=== PATIENT | male | born 1945 | race Caucasian/White ===

== ENCOUNTER 2016-06-23 09:13 | Inpatient (IN) | payer MEDICARE, BC ==
[~2016-06-23] VITALS: Ht 175.3 cm; Wt 195.0 kg
[~2016-06-23 09:13] MED LIST: ATOR40TA16 PO; GLIM4TAB PO; GLUC1000 PO; Hydrocodone/Acetaminophen PO; LANTINJ SQ; MAGN400T2 PO; METO50TA11 PO; VICT18IN SQ
[2016-06-23 09:15] VITALS: BP 192/100; PULSE 122; RESP 24; TEMP 97.5; O2SAT 100
[2016-06-23 09:32] VITALS: BP 179/101; PULSE 111; RESP 18; O2SAT 100
--- NOTE | 2016-06-23 09:44 | PD ---
HPI Chief Complaint: Complaint Time Seen by Provider: 09:27 Travel History International Travel<30 days: No Contact w/Intl Traveler<30days: No Traveled to known affect area: No History of Present Illness HPI This is a 70-year-old male who presents to the emergency department with a history of bladder cancer who has had blood in his urine since 4 AM last evening , passing blood clots initially and then feeling pain in his penis and unable to urinate this morning. He feels like he has to urinate but can't. He denies any fevers or chills. He is scheduled to have his bladder removed in early July up at [facility]. His oncologist and his urologist are there. He was hospitalized in [place] in late May having been diagnosed with a DVT and bilateral pulmonary emboli. He was discharged on Lovenox. Because these been having some intermittent blood in his urine they recently decreased his Lovenox from 80 units to 60 units. Patient reports that yesterday he also started to have left lower extremity swelling which had since resolved from his prior hospitalization. He denies any chest pain or trouble breathing. PFSH Past Medical History Hx Anticoagulant Therapy: Yes Cancer: Yes (BLADDER) Cardiovascular Problems: No High Cholesterol: Yes Chemotherapy: Yes (LAST TX 3 WEEKS AGO) Diabetes: Yes Patient Takes Glucophage: Yes (METFORMIN) Endocrine: Yes Genitourinary: No Hepatitis: No Hiatal Hernia: Yes Hypertension: Yes Immune Disorder: No Medical other: Yes (ELEVATED CHOLESTEROL) Musculoskeletal: Yes (ARTHRITIS, RT HIP PAIN) Neurologic: No Psychiatric: No Respiratory: No Thyroid Disease: No Past Surgical History AICD: No Joint Replacement: No Pacemaker: No Other Surgery: Yes (RIGHT CHEST PORT) Social History Alcohol Use: No Tobacco Use: No Substance Use: No Allergies-Medications (Allergen,Severity, Reaction): Coded Allergies: No Known Allergies (Unverified , 06/23/16) Reported Meds & Prescriptions Reported Meds & Active Scripts Active Reported Lovenox Inj (Enoxaparin Sodium) 60 Mg/0.6 Ml Syr 60 Mg SQ DAILY Tolterodine ER (Tolterodine Tartrate) 4 Mg Cap 4 Mg PO DAILY Tamsulosin (Tamsulosin HCl) 0.4 Mg Cap 0.4 Mg PO HS Centrum Silver (Multiple Vitamins W/ Minerals) 1 Tab 1 Tab PO DAILY Magnesium Oxide 400 Mg Tab 400 Mg PO DAILY Metoprolol Succinate ER 24 HR (Metoprolol Succinate) 50 Mg Tab 50 Mg PO DAILY Lantus Solostar Pen Inj (Insulin Glargine) 300 Unit/3 Ml Pen 32 Units SQ BID Atorvastatin (Atorvastatin Calcium) 40 Mg Tab 40 Mg PO HS Glimepiride 4 Mg Tab 4 Mg PO BIDAC Glucophage (Metformin HCl) 1,000 Mg Tab 1,000 Mg PO BIDPC With a meal Victoza Inj (Liraglutide Inj) 18 Mg/3 Ml Pen 1.8 Mg SQ DAILY Review of Systems Except as stated in HPI: all other systems reviewed are Neg Physical Exam Narrative GENERAL:Well appearing, no acute distress SKIN: Focused skin assessment warm and dry. HEAD: Atraumatic. Normocephalic. EYES: Pupils equal and round. No injection or drainage. ENT: Moist mucous membranes NECK: Trachea midline. CARDIOVASCULAR: Tachycardic. No murmur appreciated. RESPIRATORY: Clear to auscultation. Breath sounds equal bilaterally. GASTROINTESTINAL: Abdomen soft, non-tender, nondistended. MUSCULOSKELETAL: Swelling in the left lower extremity with tenderness of the left calf. NEUROLOGICAL: Awake and alert. No obvious cranial nerve deficits. Moving all extremities. PSYCHIATRIC: Appropriate mood and affect; insight and judgment normal. Data Data Last Documented VS Vital Signs Date Time Temp Pulse Resp B/P Pulse Ox O2 Delivery O2 Flow Rate FiO2 06/23/16 11:38 102 18 154/83 95 Room Air 06/23/16 09:15 97.5 Orders Complete Blood Count With Diff (06/23/16 09:36) Comprehensive Metabolic Panel (06/23/16 09:36) Prothrombin Time / Inr (Pt) (06/23/16 09:36) Act Partial Throm Time (Ptt) (06/23/16 09:36) ^ Insert Iv (06/23/16 09:36) Urinary Catheter Insert/Apply (06/23/16 09:36) Urinalysis - C+S If Indicated (06/23/16 09:36) Us Leg Venous Doppler (06/23/16 ) Urine Culture (06/23/16 10:15) Bladder/Catheter Irrigation (06/23/16 11:17) Add Patient To Providers List (06/23/16 ) Admit Order (Ed Use Only) (06/23/16 12:19) Consult Urology (06/23/16 ) Labs Laboratory Tests Test 06/23/16 06/23/16 10:00 10:15 White Blood Count 6.2 TH/MM3 Red Blood Count 3.89 MIL/MM3 Hemoglobin 10.5 GM/DL Hematocrit 32.2 % Mean Corpuscular Volume 82.9 FL Mean Corpuscular Hemoglobin 26.9 PG Mean Corpuscular Hemoglobin 32.5 % Concent Red Cell Distribution Width 20.7 % Platelet Count 320 TH/MM3 Mean Platelet Volume 8.8 FL Neutrophils (%) (Auto) 56.9 % Lymphocytes (%) (Auto) 29.9 % Monocytes (%) (Auto) 11.3 % Eosinophils (%) (Auto) 0.6 % Basophils (%) (Auto) 1.3 % Neutrophils # (Auto) 3.6 TH/MM3 Lymphocytes # (Auto) 1.9 TH/MM3 Monocytes # (Auto) 0.7 TH/MM3 Eosinophils # (Auto) 0.0 TH/MM3 Basophils # (Auto) 0.1 TH/MM3 CBC Comment DIFF FINAL Differential Comment Prothrombin Time 12.1 SEC Prothromb Time International 1.1 RATIO Ratio Activated Partial 26.8 SEC Thromboplast Time Sodium Level 136 MEQ/L Potassium Level 4.2 MEQ/L Chloride Level 103 MEQ/L Carbon Dioxide Level 22.4 MEQ/L Anion Gap 11 MEQ/L Blood Urea Nitrogen 13 MG/DL Creatinine 1.34 MG/DL Estimat Glomerular Filtration 53 ML/MIN Rate Random Glucose 186 MG/DL Calcium Level 8.5 MG/DL Total Bilirubin 0.3 MG/DL Aspartate Amino Transf 28 U/L (AST/SGOT) Alanine Aminotransferase 24 U/L (ALT/SGPT) Alkaline Phosphatase 63 U/L Total Protein 6.7 GM/DL Albumin 3.2 GM/DL Urine Color RED Urine Turbidity CLODUY Urine pH 6.0 Urine Specific [place] 1.010 Urine Protein 100 mg/dL Urine Glucose (UA) NEG mg/dL Urine Ketones NEG mg/dL Urine Occult Blood LARGE Urine Nitrite NEG Urine Bilirubin NEG Urine Urobilinogen LESS THAN 2.0 MG/DL Urine Leukocyte Esterase NEG Urine RBC /hpf Urine WBC 12 /hpf Urine Bacteria OCC /hpf Microscopic Urinalysis Comment CATH-CULTURE IND MDM Medical Decision Making Medical Screen Exam Complete: Yes Emergency Medical Condition: Yes Interpretation(s) afebrile, tachycardic Anemia similar to prior Mild renal insufficiency Urinalysis: Hematuria Differential Diagnosis Bladder cancer, urinary retention, urinary obstruction, anemia, DVT, pulmonary embolism Narrative Course This is a complicated 70-year-old gentleman who has a history of bladder cancer who also is on anticoagulation for recently diagnosed DVT and pulmonary embolism. He presents today with acute urinary retention in the setting of hematuria, as well as increasing left lower extremity swelling which started yesterday. Patient was placed on a monitor and an IV was established. Labs were obtained which were all reassuring. Urinalysis has blood but no obvious infection. I spoke to Dr. Tejada who agreed patient may benefit from continuous bladder irrigation. Given the patient seems to be failing his lower Lovenox dose, I think he should be admitted for consideration of new anticoagulation plan and continued treatment of hematuria. Diagnosis Primary Impression: DVT (deep venous thrombosis) Qualified Code: I82.402 - Acute deep vein thrombosis (DVT) of left lower extremity, unspecified vein Additional Impression: Hematuria Admitting Information Admitting Physician Requests: Admit Lisy Soto MD Jun 23, 2016 09:43
[2016-06-23 10:25] LABS: AUTOMATED NEUTROPHIL # 3.6 TH/MM3 (1.8-7.7); BASOPHIL # 0.1 TH/MM3 (0-0.2); BASOPHIL % 1.3 % (0.0-2.0); EOSINOPHIL % 0.6 % (0.0-4.0); HEMATOCRIT 32.2 % (39.0-51.0); HEMO FLAGS DIFF FINAL; LYMPH % 29.9 % (9.0-44.0); LYMPHOCYTE # 1.9 TH/MM3 (1.0-4.8); MEAN CELL VOLUME 82.9 FL (80.0-100.0); MEAN CORPUSCULAR HEMOGLOBIN 26.9 PG (27.0-34.0); MEAN CORPUSCULAR HGB CONC 32.5 % (32.0-36.0); MONO % 11.3 % (0.0-8.0); NEUT % 56.9 % (16.0-70.0); PLATELET COUNT 320 TH/MM3 (150-450); RED BLOOD COUNT 3.89 MIL/MM3 (4.50-5.90); RED CELL DISTRIBUTION WIDTH 20.7 % (11.6-17.2); WHITE BLOOD COUNT 6.2 TH/MM3 (4.0-11.0)
[2016-06-23 10:36] LABS: APTT (PATIENT) 26.8 SEC (24.3-30.1); INTERNATIONAL NORMALIZED RATIO 1.1 RATIO; PROTHROMBIN TIME - PATIENT 12.1 SEC (9.8-11.6)
[2016-06-23 10:38] LABS: ALT (GPT) 24 U/L (12-78); ANION GAP 11 MEQ/L (5-15); AST (GOT) 28 U/L (15-37); BICARBONATE 22.4 MEQ/L (21.0-32.0); BLOOD UREA NITROGEN 13 MG/DL (7-18); CHLORIDE 103 MEQ/L (98-107); GLOMERULAR FILTRATION RATE 53 ML/MIN (>89); POTASSIUM 4.2 MEQ/L (3.5-5.1); SODIUM (NA) 136 MEQ/L (136-145)
[2016-06-23 10:42] LABS: BACTERIA, URINE OCC /hpf; BLOOD, URINE LARGE (NEG); GLUCOSE,URINE NEG (NEG); KETONE, URINE NEG (NEG); NITRITE,URINE NEG (NEG); URINE COLOR RED (YELLW/STRAW)
[2016-06-23 10:43] LABS: COMMENT (UR) CATH-CULTURE IND; CULTURE IF INDICATED CATH CULTURE IND
[2016-06-23 10:44] LABS: ALKALINE PHOSPHATASE 63 U/L (45-117); TOTAL BILIRUBIN ADULT 0.3 MG/DL (0.2-1.0)
[2016-06-23 11:38] VITALS: BP 154/83; PULSE 102; RESP 18; O2SAT 95
--- NOTE | 2016-06-23 11:46 | RADRPT ---
EXAM DATE/TIME: 06/23/2016 10:42 [place] COMPARISON: No previous studies available for comparison. INDICATIONS : Left leg swelling two weeks ago when patient was diagnosed with a pulmonary embolism. Swelling went down but has now returned. MEDICAL HISTORY : Hypercholesterolemia. Hypertension. Carcinoma, bladder. Anticoagulant therapy. Arthritis. Diabetes . Hiatal hernia. SURGICAL HISTORY : Total right hip replacement. Right chest port. Chemotherapy. ENCOUNTER: Initial ACUITY: 2 weeks PAIN SCORE: 2/10 LOCATION: Left leg. TECHNIQUE: Venous ultrasound of the leg was performed from the inguinal ligament to the proximal calf. Real-[place] e, color Doppler and spectral tracing, compression and augmentation techniques were used. FINDINGS: There is occlusive thrombus extending from common femoral vein all the way down to popliteal vein. B elow the knee vessels are patent. CONCLUSION: DVT. KCase Palmer MD on June 23, 2016 at 11:43 Board Certified Radiologist. This report was verified electronically.
[2016-06-23] MEDS ORDERED: CENTTAB PO (11:48)
[2016-06-23] MEDS ORDERED: TAMS0.4C4 PO (11:48)
[2016-06-23] MEDS ORDERED: TOLT1CAP PO (11:48)
[2016-06-23] MEDS ORDERED: ENOX60P SQ (11:48)
[2016-06-23] MEDS ORDERED: NALOXONE HCL 0.4 MG/ML AMP IV PRN (12:45)
[2016-06-23] MEDS ORDERED: SODIUM CHLORIDE 0.9% FLUSH 10 ML FLUSH IV FLUSH PRN (12:45)
[2016-06-23] MEDS ORDERED: ONDANSETRON HCL 4 MG/2 ML VIAL IVP PRN (12:45)
--- NOTE | 2016-06-23 12:45 | HHI.HP ---
[facility] Service [facility] Primary Care Physician Minerva Macdonald MD Admission Diagnosis dvt, hematuria Diagnoses: Chief Complaint: Microhematuria Travel History International Travel<30 Days: No Contact w/Intl Traveler <30 Da: No Traveled to Known Affected Are: No Past Family Social History Allergies: Coded Allergies: No Known Allergies (Unverified , 06/23/16) Physical Exam Vital Signs Vital Signs Date Time Temp Pulse Resp B/P Pulse Ox O2 Delivery O2 Flow Rate FiO2 06/23/16 11:38 102 18 154/83 95 Room Air 06/23/16 09:32 111 18 179/101 100 Room Air 06/23/16 09:32 111 18 06/23/16 09:15 97.5 122 24 192/100 100 Room Air Physical Exam GENERAL: This is a well-nourished, well-developed patient, in no apparent distress. SKIN: No rashes, ecchymoses or lesions. Cool and dry. HEAD: Atraumatic. Normocephalic. No temporal or scalp tenderness. EYES: Pupils equal round and reactive. Extraocular motions intact. No scleral icterus. No injection or drainage. ENT: Nose without bleeding, purulent drainage or septal hematoma. Throat without erythema, tonsillar hypertrophy or exudate. Uvula midline. Airway patent. NECK: Trachea midline. No JVD or lymphadenopathy. Supple, nontender, no meningeal signs. CARDIOVASCULAR: Regular rate and rhythm without murmurs, gallops, or rubs. RESPIRATORY: Clear to auscultation. Breath sounds equal bilaterally. No wheezes , rales, or rhonchi. GASTROINTESTINAL: Abdomen soft, non-tender, nondistended. No hepato-splenomegaly , or palpable masses. No guarding. MUSCULOSKELETAL: Extremities without clubbing, cyanosis, or edema. No joint tenderness, effusion, or edema noted. No calf tenderness. Negative Homans sign bilaterally. NEUROLOGICAL: Awake and alert. Cranial nerves II through XII intact. Motor and sensory grossly within normal limits. Five out of 5 muscle strength in all muscle groups. Normal speech. Laboratory Laboratory Tests Test 06/23/16 06/23/16 10:00 10:15 White Blood Count 6.2 Red Blood Count 3.89 Hemoglobin 10.5 Hematocrit 32.2 Mean Corpuscular Volume 82.9 Mean Corpuscular Hemoglobin 26.9 Mean Corpuscular Hemoglobin 32.5 Concent Red Cell Distribution Width 20.7 Platelet Count 320 Mean Platelet Volume 8.8 Neutrophils (%) (Auto) 56.9 Lymphocytes (%) (Auto) 29.9 Monocytes (%) (Auto) 11.3 Eosinophils (%) (Auto) 0.6 Basophils (%) (Auto) 1.3 Neutrophils # (Auto) 3.6 Lymphocytes # (Auto) 1.9 Monocytes # (Auto) 0.7 Eosinophils # (Auto) 0.0 Basophils # (Auto) 0.1 CBC Comment DIFF FINAL Differential Comment Prothrombin Time 12.1 Prothromb Time International 1.1 Ratio Activated Partial 26.8 Thromboplast Time Sodium Level 136 Potassium Level 4.2 Chloride Level 103 Carbon Dioxide Level 22.4 Anion Gap 11 Blood Urea Nitrogen 13 Creatinine 1.34 Estimat Glomerular Filtration 53 Rate Random Glucose 186 Calcium Level 8.5 Total Bilirubin 0.3 Aspartate Amino Transf 28 (AST/SGOT) Alanine Aminotransferase 24 (ALT/SGPT) Alkaline Phosphatase 63 Total Protein 6.7 Albumin 3.2 Urine Color RED Urine Turbidity CLODUY Urine pH 6.0 Urine Specific [place] 1.010 Urine Protein 100 Urine Glucose (UA) NEG Urine Ketones NEG Urine Occult Blood LARGE Urine Nitrite NEG Urine Bilirubin NEG Urine Urobilinogen LESS THAN 2.0 Urine Leukocyte Esterase NEG Urine RBC Urine WBC 12 Urine Bacteria OCC Microscopic Urinalysis Comment CATH-CULTURE IND Date/Time Procedure Status Source Growth 06/23/16 10:15 Urine Culture Received Urine Catheterized Urine Pending Result Diagram: 06/23/16 1000 06/23/16 1000 Physician Certification Order for Inpatient Services The services are ordered in accordance with Medicare regulations or non- Medicare payer requirements, as applicable. In the case of services not specified as inpatient-only, they are appropriately provided as inpatient services in accordance with the 2-midnight benchmark. days is the estimated time the patient will need to remain in the hospital, assuming treatment plan goals are met and no additional complications. Rama Mai MD Jun 23, 2016 12:45
[2016-06-23 12:57] VITALS: BP 156/81; PULSE 105; RESP 18; O2SAT 100
--- NOTE | 2016-06-23 12:58 | HHI.HP ---
[facility] Service [place] [facility] Primary Care Physician Minerva Macdonald MD Admission Diagnosis dvt, hematuria Diagnoses: Chief Complaint: hematuria Travel History International Travel<30 Days: No Contact w/Intl Traveler <30 Da: No Traveled to Known Affected Are: No History of Present Illness 70-year-old male past medical history of sent diagnosis of bladder cancer and saddle PE/left DVT who presented with hematuria. Patient stated that he is receiving chemotherapy at [facility] and that he is due for surgery. He stated that on 05/29/16 he was diagnosed with saddle pulmonary embolism and left DVT in which he was treated on Lovenox 80 mg by mouth twice a day but had some hematuria so his oncologist told him to decrease the doses to 60 mg twice a day. Patient stated that he was doing well on this dose but then yesterday he started to urinate clots then he stopped urinating this morning. They also yesterday he started getting more swelling in his left leg. He stated that prior from this after he was treated with Lovenox the swelling resolved. Patient denies any shortness of breathing. Patient stated that he just got back to [facility] last week. Review of Systems Constitutional: DENIES: Diaphoretic episodes, Fatigue, Fever, Weight gain, Weight loss, Chills, Dizziness, Change in appetite, Night Sweats Endocrine: DENIES: Heat/cold intolerance, Polydipsia, Polyuria, Polyphagia Eyes: DENIES: Blurred vision, Diplopia, Eye inflammation, Eye pain, Vision loss , Photosensitivity, Double Vision Ears, nose, mouth, throat: DENIES: Tinnitus, Hearing loss, Vertigo, Nasal discharge, Oral lesions, Throat pain, Hoarseness, Ear Pain, Running Nose, Epistaxis, Sinus Pain, Toothache, Odynophagia Respiratory: DENIES: Apneas, Cough, Snoring, Wheezing, Hemoptysis, Sputum production, Shortness of breath Cardiovascular: COMPLAINS OF: Lower Extremity Edema, DENIES: Chest pain, Palpitations, Syncope, Dyspnea on Exertion, PND, Orthopnea, Claudication Gastrointestinal: DENIES: Abdominal pain, Black stools, Bloody stools, Constipation, Diarrhea, Nausea, Vomiting, Difficulty Swallowing, Anorexia Genitourinary: DENIES: Sexual dysfunction, Urinary frequency, Urinary incontinence, Urgency, Hematuria, Dysuria, Nocturia, Penile Discharge, Testicular Pain, Testicular Swelling Musculoskeletal: DENIES: Joint pain, Muscle aches, Stiffness, Joint Swelling, Back pain, Neck pain Integumentary: DENIES: Abnormal pigmentation, Nail changes, Pruritus, Rash Hematologic/lymphatic: DENIES: Bruising, Lymphadenopathy Immunologic/allergic: DENIES: Eczema, Urticaria Neurologic: DENIES: Abnormal gait, Headache, Localized weakness, Paresthesias, Seizures, Speech Problems, Tremor, Poor Balance Psychiatric: DENIES: Anxiety, Confusion, Mood changes, Depression, Hallucinations, Agitation, Suicidal Ideation, Homicidal Ideation, Delusions Hematuria Past Family Social History Past Medical History Bladder cancer Type 2 diabetes insulin-dependent Recent diagnosis of left DVT Saddle pulmonary embolism BPH Hyperlipidemia Hypertension Past Surgical History Port placement Right hip replacement Reported Medications Reported Meds & Active Scripts Active Reported Lovenox Inj (Enoxaparin Sodium) 60 Mg/0.6 Ml Syr 60 Mg SQ DAILY Tolterodine ER (Tolterodine Tartrate) 4 Mg Cap 4 Mg PO DAILY Tamsulosin (Tamsulosin HCl) 0.4 Mg Cap 0.4 Mg PO HS Centrum Silver (Multiple Vitamins W/ Minerals) 1 Tab 1 Tab PO DAILY Magnesium Oxide 400 Mg Tab 400 Mg PO DAILY Metoprolol Succinate ER 24 HR (Metoprolol Succinate) 50 Mg Tab 50 Mg PO DAILY Lantus Solostar Pen Inj (Insulin Glargine) 300 Unit/3 Ml Pen 32 Units SQ BID Atorvastatin (Atorvastatin Calcium) 40 Mg Tab 40 Mg PO HS Glimepiride 4 Mg Tab 4 Mg PO BIDAC Glucophage (Metformin HCl) 1,000 Mg Tab 1,000 Mg PO BIDPC With a meal Victoza Inj (Liraglutide Inj) 18 Mg/3 Ml Pen 1.8 Mg SQ DAILY Allergies: Coded Allergies: No Known Allergies (Unverified , 06/23/16) Active Ordered Medications Current Medications Atorvastatin Calcium (Lipitor) 40 mg HS PO ; Start 06/23/16 at 21:00; Status UNV Enoxaparin Sodium (Lovenox Inj) 60 mg DAILY SQ ; Start 06/24/16 at 09:00; Stop 06/24/16 at 09:00; Status DC Glimepiride (Amaryl) 4 mg BIDAC PO ; Start 06/23/16 at 16:00; Status UNV Magnesium Oxide (Mag-Ox) 400 mg DAILY PO ; Start 06/24/16 at 09:00; Status UNV Metformin HCl (Glucophage) 1,000 mg BIDPC PO ; Start 06/23/16 at 18:00; Status UNV Metoprolol Succinate (Toprol Xl) 50 mg DAILY PO ; Start 06/24/16 at 09:00; Status UNV Tamsulosin HCl (Flomax) 0.4 mg HS PO ; Start 06/23/16 at 21:00; Status UNV Tolterodine Tartrate (Detrol La) 4 mg DAILY PO ; Start 06/24/16 at 09:00; Status UNV Non-Formulary Medication 32 units BID SQ BSM; Start 06/23/16 at 21:00; Status UNV Non-Formulary Medication 1.8 mg DAILY SQ ; Start 06/24/16 at 09:00; Status UNV Non-Formulary Medication 1 tab DAILY PO NS; Start 06/24/16 at 09:00; Status UNV Enoxaparin Sodium (Lovenox Inj) 60 mg BID SQ ; Start 06/24/16 at 20:00; Status UNV Family History Mother had pancreatic cancer. Father had squamous cell carcinoma. Sister has breast cancer. Social History Patient lives in [facility] and [place]. Stop smoking in 1976. 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 Very rarely drinks alcohol. Physical Exam Vital Signs Vital Signs Date Time Temp Pulse Resp B/P Pulse Ox O2 Delivery O2 Flow Rate FiO2 06/23/16 11:38 102 18 154/83 95 Room Air 06/23/16 09:32 111 18 179/101 100 Room Air 06/23/16 09:32 111 18 06/23/16 09:15 97.5 122 24 192/100 100 Room Air Physical Exam GENERAL: This is a well-nourished, well-developed patient, in no apparent distress. SKIN: No rashes, ecchymoses or lesions. Cool and dry. HEAD: Atraumatic. Normocephalic. No temporal or scalp tenderness. EYES: Pupils equal round and reactive. Extraocular motions intact. No scleral icterus. No injection or drainage. ENT: Nose without bleeding, purulent drainage or septal hematoma. Throat without erythema, tonsillar hypertrophy or exudate. Uvula midline. Airway patent. NECK: Trachea midline. No JVD or lymphadenopathy. Supple, nontender, no meningeal signs. CARDIOVASCULAR: Regular rate and rhythm without murmurs, gallops, or rubs. RESPIRATORY: Clear to auscultation. Breath sounds equal bilaterally. No wheezes , rales, or rhonchi. GASTROINTESTINAL: Abdomen soft, non-tender, nondistended. No hepato-splenomegaly , or palpable masses. No guarding. MUSCULOSKELETAL: Extremities without clubbing, cyanosis, or edema. No joint tenderness, effusion, or edema noted. No calf tenderness. Negative Homans sign bilaterally. NEUROLOGICAL: Awake and alert. Cranial nerves II through XII intact. Motor and sensory grossly within normal limits. Five out of 5 muscle strength in all muscle groups. Normal speech. Laboratory Laboratory Tests Test 06/23/16 06/23/16 10:00 10:15 White Blood Count 6.2 Red Blood Count 3.89 Hemoglobin 10.5 Hematocrit 32.2 Mean Corpuscular Volume 82.9 Mean Corpuscular Hemoglobin 26.9 Mean Corpuscular Hemoglobin 32.5 Concent Red Cell Distribution Width 20.7 Platelet Count 320 Mean Platelet Volume 8.8 Neutrophils (%) (Auto) 56.9 Lymphocytes (%) (Auto) 29.9 Monocytes (%) (Auto) 11.3 Eosinophils (%) (Auto) 0.6 Basophils (%) (Auto) 1.3 Neutrophils # (Auto) 3.6 Lymphocytes # (Auto) 1.9 Monocytes # (Auto) 0.7 Eosinophils # (Auto) 0.0 Basophils # (Auto) 0.1 CBC Comment DIFF FINAL Differential Comment Prothrombin Time 12.1 Prothromb Time International 1.1 Ratio Activated Partial 26.8 Thromboplast Time Sodium Level 136 Potassium Level 4.2 Chloride Level 103 Carbon Dioxide Level 22.4 Anion Gap 11 Blood Urea Nitrogen 13 Creatinine 1.34 Estimat Glomerular Filtration 53 Rate Random Glucose 186 Calcium Level 8.5 Total Bilirubin 0.3 Aspartate Amino Transf 28 (AST/SGOT) Alanine Aminotransferase 24 (ALT/SGPT) Alkaline Phosphatase 63 Total Protein 6.7 Albumin 3.2 Urine Color RED Urine Turbidity CLODUY Urine pH 6.0 Urine Specific [place] 1.010 Urine Protein 100 Urine Glucose (UA) NEG Urine Ketones NEG Urine Occult Blood LARGE Urine Nitrite NEG Urine Bilirubin NEG Urine Urobilinogen LESS THAN 2.0 Urine Leukocyte Esterase NEG Urine RBC Urine WBC 12 Urine Bacteria OCC Microscopic Urinalysis Comment CATH-CULTURE IND Date/Time Procedure Status Source Growth 06/23/16 10:15 Urine Culture Received Urine Catheterized Urine Pending Result Diagram: 06/23/16 1000 06/23/16 1000 Imaging Last Impressions Lower Extremity Ultrasound 06/23/16 0000 Signed Impressions: Service Date/Time: Thursday, June 23, 2016 10:42 - CONCLUSION: DVT. K. Otto Palmer MD Assessment and Plan Assessment and Plan 70-year-old male with bladder cancer status post chemotherapy and history of recent PE/DVT who presented with hematuria Hematuria -Patient currently being treated for bladder cancer with chemotherapy and is on Lovenox for PE/DVT. He had dosage reduce at the end of May from 80 mg of Lovenox to 60 mg twice a day. -[facility] place and there was clots noted. Dr. Tejada, Urologist was consulted -We'll continue with Lovenox and consult carpet inspector finished for further recommendation. Bladder cancer status post chemotherapy -Per patient he scheduled for surgery. -Can follow-up with his surgeon and oncologist as outpatient. DVT/PE -This was a recent diagnosis and the swelling on his left leg has worsened. Ultrasound confirmed DVT. -Continue with Lovenox pending recommendations from the carpet inspector finished. Type 2 diabetes insulin-dependent -Resume home medication. Start patient on insulin sliding scale. BPH/hypertension/hyperlipidemia -Resume home medication. DVT prophylaxis -On Lovenox. Code Status full Discussed Condition With patient Physician Certification 2 Midnight Certification Type: Admission for Inpatient Services Order for Inpatient Services The services are ordered in accordance with Medicare regulations or non- Medicare payer requirements, as applicable. In the case of services not specified as inpatient-only, they are appropriately provided as inpatient services in accordance with the 2-midnight benchmark. Estimated LOS (days): 3 3 days is the estimated time the patient will need to remain in the hospital, assuming treatment plan goals are met and no additional complications. Post-Hospital Plan: Home Rama Mai MD Jun 23, 2016 12:58
[2016-06-23] MEDS ORDERED: DEXTROSE 50% IN WATER 50 ML VIAL(D50) IV PUSH PRN (13:00)
[2016-06-23] MEDS ORDERED: GLUCAGON 1 MG/ML VIAL OTHER PRN (13:00)
[2016-06-23] MEDS: SODIUM CHLOR 0.45% 1000 ML INJ 1,000 ML IV SCH (14:32)
--- NOTE | 2016-06-23 14:59 | MB ---
cc: LILIANA RAMIREZ DATE OF CONSULTATION: 06/23/2016 HISTORY OF PRESENT ILLNESS A 70-year-old male with history of muscle invasive bladder cancer, presents with gross hematuria. He has had this on and off over time. He was recently diagnosed with a left DVT of the lower extremity and was started on Lovenox. His initial dose was 80 mg twice a day but that was then decreased to 60 mg twice a day due to ongoing hematuria. He now presents with clot retention and a 20-Malian three-way Lanier catheter has been inserted and he is on CBI. He was irrigated at the bedside by myself and numerous clots were then irrigated out and then the urine began to slowly clear. He has received both gemcitabine and cisplatinum for his chemotherapy regimen and is scheduled to undergo surgery at [facility] on July 14. He has no other complaints at this time. PAST MEDICAL HISTORY 1. Muscle invasive bladder cancer. 2. Diabetes. 3. Left DVT. 4. History of pulmonary embolism. 5. BPH. 6. Hyperlipidemia. 7. Hypertension. PAST SURGICAL HISTORY Notable for port placement and a right hip replacement. MEDICATION For medications please refer to the chart. ALLERGIES He has no allergies. FAMILY HISTORY Family history is notable for pancreatic cancer and sister with breast cancer. SOCIAL HISTORY He currently lives in [facility] and [place]. He quit smoking in 1976. 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 REVIEW OF SYSTEMS He denies any fever or chills, weight gain or weight loss at present. He denies any heat or cold intolerance, polydipsia. Denies any blurred vision, diplopia, inflammation of the eye, vision loss. He denies any tinnitus or hearing loss, vertigo. Denies any chest pain or denies any shortness of breath at present, sputum production, no angina. Denies abdominal pain, black tarry stools, constipation or diarrhea. Does note gross hematuria but denies any discharge. Musculoskeletal: Denies any muscle aches or joint pain. He denies any rashes at present time. He denies any bleeding disorders or gait disturbances. Denies any headaches, localized weakness. Denies any eczema or urticaria. Denies any anxiety, confusion or mood changes. PHYSICAL EXAMINATION VITAL SIGNS: Temperature is 97.5, heart rate is 105, respiratory rate 18, 156/81. GENERAL: He is a well-developed, well-nourished 70-year-old male in no acute distress. HEENT: Normocephalic, atraumatic. Pupils are equal, round and reactive to light. Extraocular movements intact. NECK: Supple. HEART: Regular rate and rhythm. LUNGS: Breath sounds bilaterally. ABDOMEN: Soft, nontender, nondistended. : A 20-Malian Lanier is in place, irrigated at the bedside to clear with clots removed without difficulty. EXTREMITIES: Show left lower extremity edema, swelling. LABORATORY FINDINGS White count 6.2, hemoglobin 10.5, hematocrit 32.5, platelet count 320, sodium 136, potassium 4.2, chloride 103, CO2 22.4, BUN of 13, creatinine 1.3, glucose of 186, PT is 12.1, INR is 1.1, PTT is 26.8. Urinalysis shows numerous red cells with 12 white cells. IMAGING STUDIES Lower extremity ultrasound shows DVT of the left leg. Ultrasound shows occlusive thrombus extending from the common femoral vein all the way down to the popliteal vein. ASSESSMENT A 70-year-old male with history of muscle invasive bladder cancer with a history of a DVT on anticoagulation therapy. 20-Malian three-way Lanier catheter was inserted at the bedside and irrigated to clear. Continue CBI for now. Once urine clears can remove Lanier and then plan for discharge and then will return to [place] to undergo a radical cystoprostatectomy at that time at [facility]. Thank you for the consult and allowing me to participate in the care of this patient. Liliana NOE /2:26 PM /2:36 PM
[2016-06-23 15:45] VITALS: BP 142/76; PULSE 104; RESP 18; O2SAT 100
[2016-06-23] MEDS: INSULIN ASPART SUPPLEMENTAL SCALE SQ SCH ×2 (16:23→22:48)
[2016-06-23] MEDS: GLIMEPIRIDE 4 MG TAB PO SCH (17:27)
[2016-06-23] MEDS: metFORMIN HCL 500 MG TAB PO SCH (17:30)
[2016-06-23] MEDS ORDERED: ENOXAPARIN SODIUM 60 MG/0.6 ML SYRINGE SQ SCH (20:00)
[2016-06-23 21:00] VITALS: BP 149/70; PULSE 97; RESP 21; TEMP 98.9; O2SAT 94
[2016-06-23] MEDS ORDERED: HEPARIN SODIUM - IV 10,000 UNITS/10 ML VIAL IV PRN ×2 (21:00)
[2016-06-23] MEDS: SODIUM CHLORIDE 0.9% FLUSH 10 ML FLUSH IV FLUSH SCH (21:00)
[2016-06-23] MEDS: HEPARIN 25,000 UNITS-D5W 250 ML - PREMIX IV SCH (22:32)
[2016-06-23] MEDS: TAMSULOSIN HCL 0.4 MG CAP PO SCH (22:46)
[2016-06-23] MEDS: ATORVASTATIN 40 MG TAB PO SCH (22:46)
[2016-06-23] MEDS: INSULIN DETEMIR 100 UNITS/ML VIAL SQ SCH (22:48)
[2016-06-24] VITALS: BP 143/68; PULSE 101; RESP 16; TEMP 97.9; O2SAT 98
[2016-06-24 06:28] LABS: HEMATOCRIT 30.5 % (39.0-51.0); MEAN CORPUSCULAR HEMOGLOBIN 26.7 PG (27.0-34.0); MEAN CORPUSCULAR HGB CONC 32.1 % (32.0-36.0); PLATELET COUNT 301 TH/MM3 (150-450); RED BLOOD COUNT 3.68 MIL/MM3 (4.50-5.90); RED CELL DISTRIBUTION WIDTH 20.7 % (11.6-17.2); REVIEW FLAG FINAL; WHITE BLOOD COUNT 7.2 TH/MM3 (4.0-11.0)
[2016-06-24 06:37] LABS: APTT (PATIENT) 41.3 SEC (24.3-30.1)
[2016-06-24 06:47] LABS: BICARBONATE 27.3 MEQ/L (21.0-32.0); POTASSIUM 3.7 MEQ/L (3.5-5.1)
[2016-06-24] MEDS: GLIMEPIRIDE 4 MG TAB PO SCH ×2 (06:47→18:03)
[2016-06-24] MEDS: SODIUM CHLOR 0.45% 1000 ML INJ 1,000 ML IV SCH ×2 (06:48→16:40)
[2016-06-24] MEDS: INSULIN ASPART SUPPLEMENTAL SCALE SQ SCH ×4 (06:49→20:37)
[2016-06-24 08:00] VITALS: BP 157/78; PULSE 99; RESP 18; TEMP 97.9; O2SAT 96
[2016-06-24] MEDS: SODIUM CHLORIDE 0.9% FLUSH 10 ML FLUSH IV FLUSH SCH ×2 (08:39→20:37)
[2016-06-24] MEDS: TOLTERODINE TARTRATE 4 MG CAP LA PO SCH (08:39)
[2016-06-24] MEDS: METOPROLOL SUCCINATE 50 MG EXTENDED RELEASE TAB PO SCH (08:39)
[2016-06-24] MEDS: INSULIN DETEMIR 100 UNITS/ML VIAL SQ SCH ×2 (08:40→20:36)
[2016-06-24] MEDS: MULTIVITAMINS/MINERALS THERAPEUTIC TAB PO SCH (08:40)
[2016-06-24] MEDS: metFORMIN HCL 500 MG TAB PO SCH ×2 (08:40→18:03)
[2016-06-24] MEDS: VICTOZA 1.8 MG SQ SCH (08:41)
[2016-06-24] MEDS: [UNRECOGNIZED DRUG - OTHER] SQ SCH (08:41)
[2016-06-24] MEDS ORDERED: ENOXAPARIN SODIUM 60 MG/0.6 ML SYRINGE SQ SCH (09:00)
--- NOTE | 2016-06-24 09:16 | HHI.PR ---
Subjective Patient symptoms today Pt seen and examined. Feels well. Urine now clear. Hurley removed at bedside. Objective Vital Signs Vital Signs Date Time Temp Pulse Resp B/P Pulse Ox O2 Delivery O2 Flow Rate FiO2 06/24/16 00:00 97.9 101 16 143/68 98 06/23/16 21:00 98.9 97 21 149/70 94 06/23/16 15:45 104 18 142/76 100 Room Air 06/23/16 12:57 105 18 156/81 100 Room Air 06/23/16 11:38 102 18 154/83 95 Room Air 06/23/16 09:32 111 18 179/101 100 Room Air 06/23/16 09:32 111 18 Result Diagram: 06/24/16 0555 06/24/16 05 Objective Remarks Abd:soft,nt,nd Hurley: urine clear and hurley removed; void trial today. Medications and IVs Current Medications Medications (Trade) Dose Ordered Sig/Liane Route Start Time Stop Time Status Last Admin (Lipitor) 40 mg HS PO 06/23/16 21:00 06/23/16 22:46 (Amaryl) 4 mg BIDAC PO 06/23/16 16:00 06/24/16 06:47 (Mag-Ox) 400 mg DAILY@11 PO 06/24/16 11:00 (Glucophage) 1,000 mg BIDPC PO 06/23/16 18:00 06/24/16 08:40 (Toprol Xl) 50 mg DAILY PO 06/24/16 09:00 06/24/16 08:39 (Flomax) 0.4 mg HS PO 06/23/16 21:00 06/23/16 22:46 (Detrol La) 4 mg DAILY PO 06/24/16 09:00 06/24/16 08:39 (Levemir Inj) 32 units BID SQ 06/23/16 21:00 06/23/16 22:48 Patient Own Medication PT OWN MED: VICTOZA (LIRAGLUTI... DAILY SQ 06/24/16 09:00 Multivitamins/ Minerals Therapeutic 1 tab 1 tab DAILY PO 06/24/16 09:00 06/24/16 08:40 (1/2 NS 1000 ml Inj) 1,000 ml @ 75 mls/hr [id number] IV 06/23/16 14:00 06/24/16 06:48 (NS Flush) 2 ml UNSCH PRN IV FLUSH 06/23/16 12:45 (NS Flush) 2 ml BID IV FLUSH 06/23/16 21:00 06/24/16 08:39 (Zofran Inj) 4 mg Q6H PRN IVP 06/23/16 12:45 (Narcan Inj) 0.4 mg UNSCH PRN IV 06/23/16 12:45 (D50w (Vial) Inj) 25 ml UNSCH PRN IV PUSH 06/23/16 13:00 Glucagon 1 mg 1 mg UNSCH PRN OTHER 06/23/16 13:00 (Heparin-D5W Inj) 250 ml @ 0 mls/hr TITRATE IV 06/23/16 21:00 06/23/16 22:32 (Heparin Inj) 5,000 units UNSCH PRN IV 06/23/16 21:00 (Heparin Inj) 2,500 units UNSCH PRN IV 06/23/16 21:00 Assessment and Plan Assessment and Plan 70 y.o male with muscle invasive bladder cancer with gross hematuria Urine now clear Hurley removed; void trial today Alejo Tejada DO Jun 24, 2016 09:16
--- NOTE | 2016-06-24 09:19 | MB ---
cc: MINERVA MACDONALD MD, ABDUL J. M.D. DATE OF CONSULTATION 06/23/[address] Minerva Macdonald REASON FOR CONSULTATION Consult [facility] of left lower extremity DVT in a patient who has a history of urinary bladder cancer. HISTORY OF PRESENT ILLNESS This is a 70-year-old very pleasant white male. He has a history of diabetes mellitus, hypertension, hypercholesterolemia and BPH. The patient went for a routine examination to Dr. Minerva Macdonald last January. Routine blood tests and urine tests were ordered. The patient was found to have hematuria. The patient was subsequently referred to urologist, Dr. Best. The patient states that he underwent cystoscopy and was found to have a urinary bladder cancer. The details of the those are not available at the present time. The patient states that he has four daughters all who live up [place] and they advised him to come to [place] to get a second opinion. The patient went to [facility] in [place], as well as [facility] in [place] to get second and third opinions. He states that both second and third opinion advised him to have preoperative chemotherapy followed by cystoprostatectomy. The patient decided to be treated at [facility]. He saw Dr. Goldy Vaughan, a urologist. His office number is [phone]. He also saw medical oncologist Dr. Sherman. Her office number is [phone]. The patient was started on cisplatin and Gemzar chemotherapy. He states that he was taking chemotherapy two weeks on and one week off. He had a total of seven chemotherapies. He had a restaging scan done and the tumor in the bladder has gone down from 1.7 cm to 0.4 cm. This is according to the patient's history, although I do not have any of those records available. The patient stated that he has been advised not to have any further chemotherapy and he is now scheduled to have a radical cystoprostatectomy on July 14 at [facility]. On May 29, he was diagnosed with left lower extremity DVT with bilateral pulmonary embolism when he presented with swelling of the left lower extremity in [place]. The patient stated that he was admitted to the hospital. He was treated with IV heparin and he was discharged on Lovenox 80 mg subcu twice a day. The patient noticed that the swelling in his leg has completely resolved with the Lovenox. The patient was doing fine up until recently, he developed hematuria and he was advised to cut back on Lovenox from 80 mg to 60 mg twice a day. However, he continues to notice hematuria. He came to the emergency room today. When he woke up in the morning, he was unable to urinate. He was in severe pain. He also noticed swelling of the left lower extremity. With these symptoms, he came to the emergency room. The patient had a Doppler ultrasound of the left lower leg which showed acute occlusive thrombus extending from the common femoral vein all the way down to the popliteal vein. Below the knee vessels are patent. The patient also was found to have urinary retention due to blood clots in the bladder. He has a three-way Lanier catheter inserted and multiple clots were retrieved. The patient was started on CBI. The urologist was consulted. The patient was evaluated by Dr. Chuck Tejada. With the CBI, his urine has now cleared. I have been asked to see the patient for left lower extremity DVT. The patient states that last month he developed left lower extremity swelling and he was found to have DVT with pulmonary embolism. With the Heparin and Lovenox, the swelling in his left leg has completely resolved. However, when the Lovenox was cut back from 80 mg to 60 mg, he noticed more swelling in the left leg and now he has a DVT. He denies any chest pain or shortness of breath. He just came back from [place] a week ago and he is planning to return to the [place] for surgery on July 14. The rest of the review of systems is negative. PAST MEDICAL HISTORY 1. Urinary bladder cancer 2. Diabetes mellitus 3. Hypercholesterolemia 4. Hypertension 5. BPH 6. Rapid heartbeat PAST SURGICAL HISTORY 1. Right hip surgery by Dr. Autl Vang 2. Vasectomy 3. Inuqpx-R-Lejv placement 4. Cystoscopy ALLERGIES None MEDICATIONS Medications prior to coming to the hospital: 1. Lovenox 2. Metoprolol 3. Glimepiride 4. Victoza 5. Atorvastatin 6. Magnesium 7. Tamsulosin FAMILY HISTORY Father from lung cancer with brain metastasis. Mother from pancreatic cancer. The patient does not have any brothers or sons. He has one sister who probably has breast cancer, but he is not sure. The patient has four daughters all alive and well. SOCIAL HISTORY The patient is a . His from kidney cancer and she was under the care for Dr. León. The patient used to smoke cigarettes , quit in 1976. Does not drink alcohol. 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 PHYSICAL EXAM This is a well-developed, well-nourished white male in no apparent distress. VITAL SIGNS: Temperature 98.9, heart is 97, blood pressure 149/70, O2 saturation 94% on room air. HEENT: PERRLA, EOMI, anicteric, no oral lesions are noted. NECK: Supple. There is no cervical, supraclavicular or axillary lymphadenopathy noted. LUNGS: Clear. No wheezing, rhonchi or rales. HEART: Regular rate and rhythm. ABDOMEN: Soft, nontender. No hepatosplenomegaly. EXTREMITIES: Swelling of the left lower extremity noted. NEUROLOGIC: Awake, alert, and oriented times threes. SKIN: No significant lesions are noted. LABORATORY DATA CBC showed a white count of 6.2, hemoglobin 10.5, hematocrit 32.2, platelet count is 320, comprehensive metabolic profile is normal except the creatinine is 1.34, GFR is 53 and random glucose is 186, abdomen is 3.2. ASSESSMENT 1. Muscle invasive urinary bladder cancer status post neoadjuvant chemotherapy cisplatin and Gemzar. 2. Left lower extremity DVT with bilateral pulmonary embolism diagnosed a month ago when he was in [place], now he is on Lovenox. 3. Recurrence of left lower extremity swelling with extensive DVT. 4. Hematuria most likely combination of urinary bladder cancer as well as anticoagulation. PLAN I have reviewed his available records and I had an extensive discussion with the patient and his significant other regarding the management of DVT with pulmonary embolism in the setting of hematuria and urinary bladder cancer. The patient had cisplatin and Gemzar chemotherapy three and a half cycles at [facility]. He states that they had stopped the chemotherapy since the tumor has significantly reduced from 1.7 cm to 0.4 cm. He is now scheduled to have radical cystoprostatectomy on July 14. We discussed that he carries a increased surgical risk due to DVT and pulmonary embolism when the anticoagulation will be held for the surgery. Therefore, my recommendation is that he should have an IVC filter placed to decreased the perioperative morbidity and modality due to the acute DVT and pulmonary embolism. Before I put the filter in, I would like to discuss with his urologist Dr. Goldy Vaughan at [facility]. His office number is [phone]. I will also discuss with his medical oncologist Dr. Sherman, phone number is [phone]. We will consult interventional radiologist for the filter if his urologist and oncologist agrees with that. The patient has missed his Lovenox last night and this morning. Order has been placed for Lovenox for him to get it at 8 o'clock tonight. However, due to hematuria, I think heparin would be more appropriate especially when we are planning to put the filter. Therefore, I will discontinue Lovenox and start him on a heparin drip. I have discussed this with the nurse in charge on the floor as the patient's nurse is not available at the present time. We also discussed new oral anticoagulant, but I would not recommend this as he is scheduled to have surgery in the next three weeks or so and also with a history of hematuria. We need to closely monitor him in the hospital while he is getting IV heparin to see whether his hematuria gets worse. At the moment, his urine is clear with the continuous bladder irrigation. However, if his hematuria returns, then my recommendation is for cystoscopy and possible cauterization of the bleeding spot if found. The patient and his significant other have asked several questions and these were answered to their satisfaction. Further recommendations to follow. Thank you for asking my opinion. Shirley Escudero MD /INDY /5:12 AM /8:49 AM NATHANIEL
--- NOTE | 2016-06-24 10:41 | PD.ONC.PN ---
Subjective Subjective Remarks Afebrile overnight. Patient just had Lanier catheter removed. Denies hematuria. Eager to know when he can go home. Objective Data Date Time Temp Pulse Resp B/P Pulse Ox O2 Delivery O2 Flow Rate FiO2 06/24/16 08:00 97.9 99 18 157/78 96 06/24/16 00:00 97.9 101 16 143/68 98 06/23/16 21:00 98.9 97 21 149/70 94 06/23/16 15:45 104 18 142/76 100 Room Air 06/23/16 12:57 105 18 156/81 100 Room Air 06/23/16 11:38 102 18 154/83 95 Room Air Result Diagram: 06/24/16 0555 06/24/16 0555 Laboratory Results Laboratory Tests Test 06/24/16 05:55 White Blood Count 7.2 TH/MM3 Red Blood Count 3.68 MIL/MM3 Hemoglobin 9.8 GM/DL Hematocrit 30.5 % Mean Corpuscular Volume 83.0 FL Mean Corpuscular Hemoglobin 26.7 PG Mean Corpuscular Hemoglobin 32.1 % Concent Red Cell Distribution Width 20.7 % Platelet Count 301 TH/MM3 Mean Platelet Volume 8.1 FL Activated Partial 41.3 SEC Thromboplast Time Sodium Level 141 MEQ/L Potassium Level 3.7 MEQ/L Chloride Level 106 MEQ/L Carbon Dioxide Level 27.3 MEQ/L Anion Gap 8 MEQ/L Blood Urea Nitrogen 11 MG/DL Creatinine 0.86 MG/DL Estimat Glomerular Filtration 88 ML/MIN Rate Random Glucose 69 MG/DL Calcium Level 8.2 MG/DL Culture Results Microbiology Date/Time Procedure Status Source Growth 06/23/16 10:15 Urine Culture Received Urine Catheterized Urine Pending Administered Medications Medications (Trade) Dose Ordered Sig/Liane Route PRN Reason Start Time Stop Time Status Last Admin Dose Admin Atorvastatin Calcium (Lipitor) 40 mg HS PO 06/23/16 21:00 06/23/16 22:46 Glimepiride (Amaryl) 4 mg BIDAC PO 06/23/16 16:00 06/24/16 06:47 Metformin HCl (Glucophage) 1,000 mg BIDPC PO 06/23/16 18:00 06/24/16 08:40 Metoprolol Succinate (Toprol Xl) 50 mg DAILY PO 06/24/16 09:00 06/24/16 08:39 Tamsulosin HCl (Flomax) 0.4 mg HS PO 06/23/16 21:00 06/23/16 22:46 Tolterodine Tartrate (Detrol La) 4 mg DAILY PO 06/24/16 09:00 06/24/16 08:39 Insulin Detemir (Levemir Inj) 32 units BID SQ 06/23/16 21:00 06/23/16 22:48 Multivitamins/ Minerals Therapeutic 1 tab 1 tab DAILY PO 06/24/16 09:00 06/24/16 08:40 Sodium Chloride (1/2 NS 1000 ml Inj) 1,000 ml @ 75 mls/hr [id number] IV 06/23/16 14:00 06/24/16 06:48 Sodium Chloride 2 ml 2 ml BID IV FLUSH 06/23/16 21:00 06/24/16 08:39 Heparin Sodium/ Dextrose (Heparin-D5W Inj) 250 ml @ 0 mls/hr TITRATE IV 06/23/16 21:00 06/23/16 22:32 Objective Remarks GENERAL: Elderly male, sitting up in bed in nad. SKIN: Warm and dry. HEAD: Normocephalic. EYES: No injection or drainage. NECK: Supple, trachea midline. CARDIOVASCULAR: Regular rate and rhythm RESPIRATORY: Breath sounds equal bilaterally. No accessory muscle use. GASTROINTESTINAL: Abdomen soft, non-tender, nondistended. EXTREMITIES: No cyanosis NEUROLOGICAL: No obvious focal deficit. Awake, alert, and oriented x3. Assessment/Plan Problem List: (1) DVT (deep venous thrombosis) Status: Acute Plan: 06/24: currently on heparin drip. UPDATE: Dr. Escudero d/w patient's physicians at [facility], will place order for IVC filter placement. --diagnosed in late May --discharged home on Lovenox --developed gross hematuria and bladder obstruction from the hematuria while on Lovenox --carries a increased surgical risk due to DVT and pulmonary embolism when the anticoagulation will be held for the surgery. --recommendation is that he should have an IVC filter placed to decrease the perioperative morbidity and mortality due to the acute DVT and pulmonary embolism. (2) Bladder cancer Status: Acute Plan: -- treated at [facility]. --Dr. Goldy Vaughan, a urologist. [phone]. --medical oncologist Dr. Sherman. [phone]. --cisplatin and Gemzar chemotherapy x 7cycles -- restaging scan showed tumor in the bladder has gone down from 1.7 cm to 0.4 cm. -- radical cystoprostatectomy on July 14 at [facility]. Assessment 70y/o male admitted with hematuria. Hematology consulted for LLE DVT +PE , anticoagulation recommendations history of diabetes mellitus, hypertension, hypercholesterolemia, BPH. h/o Urinary bladder cancer Diabetes mellitus Hypercholesterolemia Hypertension BPH Rapid heartbeat Attending Statement no more hematuria leg swelling improving i d/w his urologist and oncologist at [facility] about the Filter. They both have agreed. s/p IVC filter. continue heparin. Problem Qualifiers (1) DVT (deep venous thrombosis): Qualified Code: I82.402 - Acute deep vein thrombosis (DVT) of left lower extremity, unspecified vein Denise Peter Jun 24, 2016 10:41 Stewart Escudero MD Jun 25, 2016 05:10
[2016-06-24] MEDS: MAGNESIUM OXIDE 400 MG TAB PO SCH (11:00)
--- NOTE | 2016-06-24 11:03 | HHI.PR ---
Subjective Remarks f/u for hematuria and PE/DVT patient stated he is doing well. no more clots and hurley was d/aicha. he had lots of questions on IVC filter. he stated swelling has gone done. Denied any SOB, cough or pain. Objective Vitals Vital Signs Date Time Temp Pulse Resp B/P Pulse Ox O2 Delivery O2 Flow Rate FiO2 06/24/16 08:00 97.9 99 18 157/78 96 06/24/16 00:00 97.9 101 16 143/68 98 06/23/16 21:00 98.9 97 21 149/70 94 06/23/16 15:45 104 18 142/76 100 Room Air 06/23/16 12:57 105 18 156/81 100 Room Air 06/23/16 11:38 102 18 154/83 95 Room Air I/O 06/23/16 06/23/16 06/23/16 06/24/16 06/24/16 06/24/16 07:00 15:00 23:00 07:00 15:00 23:00 Intake Total 120 ml 240 ml Output Total 8275 ml 1750 ml Balance -8275 ml 120 ml -1510 ml Intake Oral 120 ml 240 ml Output Urine Total 8275 ml 1750 ml # Voids 0 # Bowel Movements 0 0 Result Diagram: 06/24/16 0555 06/24/16 0555 Objective Remarks GENERAL: This is a well-nourished, well-developed patient, in no apparent distress. NECK: Trachea midline. No JVD or lymphadenopathy. Supple, nontender, no meningeal signs. CARDIOVASCULAR: Regular rate and rhythm without murmurs, gallops, or rubs. RESPIRATORY: Clear to auscultation. Breath sounds equal bilaterally. No wheezes , rales, or rhonchi. GASTROINTESTINAL: Abdomen soft, non-tender, nondistended. No hepato-splenomegaly , or palpable masses. No guarding. MUSCULOSKELETAL: Extremities without clubbing, cyanosis. No joint tenderness, effusion, or edema noted. No calf tenderness. Negative Homans sign bilaterally. left LE edema improved. NEUROLOGICAL: Awake and alert. Cranial nerves II through XII intact. Motor and sensory grossly within normal limits. Five out of 5 muscle strength in all muscle groups. Normal speech. Medications and IVs Current Medications Atorvastatin Calcium (Lipitor) 40 mg HS PO Last administered on 4/17/17at 22:46 ; Start 06/23/16 at 21:00 Enoxaparin Sodium (Lovenox Inj) 60 mg DAILY SQ ; Start 06/24/16 at 09:00; Stop 06/24/16 at 09:00; Status DC Glimepiride (Amaryl) 4 mg BIDAC PO Last administered on 06/24/16 06:47; Start 06/23/16 at 16:00 Magnesium Oxide (Mag-Ox) 400 mg DAILY@11 PO ; Start 06/24/16 at 11:00 Metformin HCl (Glucophage) 1,000 mg BIDPC PO Last administered on 06/24/16 08: 40; Start 06/23/16 at 18:00 Metoprolol Succinate (Toprol Xl) 50 mg DAILY PO Last administered on 06/24/16 08:39; Start 06/24/16 at 09:00 Tamsulosin HCl (Flomax) 0.4 mg HS PO Last administered on 06/23/16 22:46; Start 06/23/16 at 21:00 Tolterodine Tartrate (Detrol La) 4 mg DAILY PO Last administered on 06/24/16 08:39; Start 06/24/16 at 09:00 Insulin Detemir (Levemir Inj) 32 units BID SQ Last administered on 06/23/16 22 :48; Start 06/23/16 at 21:00 Patient Own Medication PT OWN MED: VICTOZA (LIRAGLUTI... DAILY SQ ; Start at 09:00 Multivitamins/ Minerals Therapeutic (Theragran M Tab) 1 tab DAILY PO Last administered on 06/24/16 08:40; Start 06/24/16 at 09:00 Enoxaparin Sodium 60 mg 60 mg Q12H SQ ; Start 06/23/16 at 20:00; Stop 06/23/16 at 20:47; Status DC Sodium Chloride (1/2 NS 1000 ml Inj) 1,000 ml @ 75 mls/hr [id number] IV Last administered on 06/24/16 06:48; Start 06/23/16 at 14:00 Sodium Chloride (NS Flush) 2 ml UNSCH PRN IV FLUSH FLUSH AFTER USING IV ACCESS ; Start 06/23/16 at 12:45 Sodium Chloride (NS Flush) 2 ml BID IV FLUSH Last administered on 06/24/16 08: 39; Start 06/23/16 at 21:00 Ondansetron HCl (Zofran Inj) 4 mg Q6H PRN IVP NAUSEA OR VOMITING; Start at 12:45 Naloxone HCl (Narcan Inj) 0.4 mg UNSCH PRN IV SEE LABEL COMMENTS; Start at 12:45 Dextrose (D50w (Vial) Inj) 25 ml UNSCH PRN IV PUSH HYPOGLYCEMIA-SEE COMMENTS; Start 06/23/16 at 13:00 Glucagon (Glucagon Inj) 1 mg UNSCH PRN OTHER HYPOGLYCEMIA-SEE COMMENTS; Start 06/23/16 at 13:00 Insulin Aspart 1 1 ACHS SLIDING SCALE SQ Last administered on 06/23/16 22:48 ; Start 06/23/16 at 16:00 Heparin Sodium/ Dextrose (Heparin-D5W Inj) 250 ml @ 0 mls/hr TITRATE IV Last administered on 06/23/16 22:32; Start 06/23/16 at 21:00 Heparin Sodium (Porcine) (Heparin Inj) 5,000 units UNSCH PRN IV aPTT less than 25; Start 06/23/16 at 21:00 Heparin Sodium (Porcine) (Heparin Inj) 2,500 units UNSCH PRN IV aPTT 25 to 39; Start 06/23/16 at 21:00 A/P Assessment and Plan 70-year-old male with bladder cancer status post chemotherapy and history of recent PE/DVT who presented with hematuria Hematuria -resolved so hurley removed in AM. -Patient currently being treated for bladder cancer with chemotherapy and is on Lovenox for PE/DVT. He had dosage reduce at the end of May from 80 mg of Lovenox to 60 mg twice a day. - Dr. Tejada, Urologist and Dr. Escudero, oncologist ff. -recommend heparin gtt and IVF filter. Sr. Escudero will call patient's oncologist and urologist to see if they are okay with this. Bladder cancer status post chemotherapy -Per patient he scheduled for surgery. -Can follow-up with his surgeon and oncologist as outpatient. DVT/PE -This was a recent diagnosis and the swelling on his left leg has worsened. Ultrasound confirmed DVT. -see treatment as above. Type 2 diabetes insulin-dependent -Resume home medication. Start patient on insulin sliding scale. BPH/hypertension/hyperlipidemia -Resume home medication. DVT prophylaxis -On Lovenox. Discharge Planning patient is on heparin gtt and may get an IVF filter while hospitalized. Rama Mai MD Jun 24, 2016 11:03
[2016-06-24 12:00] VITALS: BP 149/81; PULSE 103; RESP 16; TEMP 97.4; O2SAT 98
[2016-06-24 13:05] LABS: APTT (PATIENT) 27.8 SEC (24.3-30.1)
[2016-06-24] MEDS: HEPARIN 25,000 UNITS-D5W 250 ML - PREMIX IV SCH (13:58)
[2016-06-24 16:00] VITALS: BP 133/80; PULSE 101; RESP 16; TEMP 96.8; O2SAT 98
[2016-06-24] MEDS ORDERED: IOHEXOL 350 MG/ML 50 ML BTL (for RAD DIAG) IV ONE (17:34)
--- NOTE | 2016-06-24 17:56 | PD.RAD ---
Post Procedure Progress Note Pre Procedure Diagnosis: (1) DVT (deep venous thrombosis) (2) Bladder cancer Post Procedure Diagnosis: (1) DVT (deep venous thrombosis) (2) Bladder cancer Procedure Date: Jun 24, 2016 Supervising Radiologist: Brian Issa Proceduralist/Assist: Ayaka Tidwell, RT(R), Nanda Kendrick RT(R)() Anesthesia: Local, Analgesia Plan of Activity Patient to Unit: Nursing Unit Patient Condition: Good See PACS Report for procedural detail/treatment Vascular-Venous Procedure Procedure 1 Procedure Site: Abdominal Procedure(s): Permanent IVC Filter (Vena-Tech) Access Access Site(s): Right Jugular Vein Brian Issa MD Jun 24, 2016 17:55
--- NOTE | 2016-06-24 19:47 | RADRPT ---
EXAM DATE/TIME: 06/24/2016 17:36 [place] COMPARISON: No previous studies available for comparison. INDICATIONS : Patient with a history of DVT and saddle PE MEDICAL HISTORY : Bladder cancer Type II diabetes DVT Saddle pulmonary embolism SURGICAL HISTORY : Port placement Right hip replacement ENCOUNTER: Initial ACUITY: 1 day PAIN SCORE: 0/10 FLUORO TIME: 1.1 minutes IMAGE SERIES: 2 ACCESS SITE: Right Internal jugular vein CONTRAST: 15 cc Omnipaque (iohexol) 350 MEDICATION(S): 1.) 100 mcg fentanyl (Sublimaze) IV DEVICE(S): 1.) Inferior vena cava B Hernandez Venatech filter PROCEDURE : 1. Ultrasound-guided venipuncture. 2. Inferior venacavogram. 3. Inferior vena cava filter placement. 4. Conscious sedation with continuous EKG and oximetry monitoring. The risks, benefits and alternatives to the procedure were explained and verbal and written consent w as obtained. The site was prepped in sterile fashion. Full sterile technique was used, including ca p, mask, sterile gloves and gown and a large sterile sheet. Hand hygiene and 2% chlorhexidine and/or betadine/alcohol prep was utilized per protocol for cutaneous antisepsis. The skin and subcutaneous tissues were infiltrated with local anesthetic solution. With ultrasound and fluoroscopic guidance the targeted vein was punctured and a vascular sheath was p laced. Inferior venacavogram was performed to demonstrate level of renal veins. No caval thrombus was identified. The prescribed filter was deployed in the infrarenal inferior vena cava. Following deplo yment the filter was identified in good position. Conscious sedation was performed with the prescribed dosages and duration as above in the presence of an independent trained radiology nurse to assist in the monitoring of the patient. EKG and oximetry remained stable throughout the procedure. The patient tolerated the procedure well and there were n o complications. The patient was sent to post anesthesia recovery in stable condition. CONCLUSION: Uncomplicated inferior vena cava filter placement as above. Brian Issa MD on June 24, 2016 at 19:45 Board Certified Radiologist. This report was verified electronically.
[2016-06-24 20:00] VITALS: BP 174/79; PULSE 93; RESP 16; TEMP 96.4; O2SAT 97
[2016-06-24 20:28] LABS: APTT (PATIENT) 27.1 SEC (24.3-30.1)
[2016-06-24] MEDS: ATORVASTATIN 40 MG TAB PO SCH (20:36)
[2016-06-24] MEDS: TAMSULOSIN HCL 0.4 MG CAP PO SCH (20:36)
[2016-06-25] VITALS: BP 174/79; PULSE 93; RESP 16; TEMP 97.5; O2SAT 97
[2016-06-25 03:56] LABS: HEMATOCRIT 29.2 % (39.0-51.0); MEAN CELL VOLUME 83.1 FL (80.0-100.0); MEAN CORPUSCULAR HGB CONC 32.5 % (32.0-36.0); PLATELET COUNT 275 TH/MM3 (150-450); RED BLOOD COUNT 3.51 MIL/MM3 (4.50-5.90); REVIEW FLAG FINAL; WHITE BLOOD COUNT 7.5 TH/MM3 (4.0-11.0)
[2016-06-25 04:09] LABS: BICARBONATE 27.3 MEQ/L (21.0-32.0); POTASSIUM 3.9 MEQ/L (3.5-5.1)
[2016-06-25 04:11] LABS: APTT (PATIENT) 60.7 SEC (24.3-30.1)
[2016-06-25 05:27] VITALS: BP 141/69; PULSE 104; RESP 18; TEMP 97.2; O2SAT 97
[2016-06-25] MEDS: SODIUM CHLOR 0.45% 1000 ML INJ 1,000 ML IV SCH (06:02)
[2016-06-25] MEDS: GLIMEPIRIDE 4 MG TAB PO SCH ×2 (06:02→16:37)
[2016-06-25] MEDS: INSULIN ASPART SUPPLEMENTAL SCALE SQ SCH ×3 (06:06→16:00)
[2016-06-25 08:00] VITALS: BP 145/68; PULSE 107; RESP 18; TEMP 97.4; O2SAT 98
[2016-06-25] MEDS: SODIUM CHLORIDE 0.9% FLUSH 10 ML FLUSH IV FLUSH SCH (08:25)
[2016-06-25] MEDS: INSULIN DETEMIR 100 UNITS/ML VIAL SQ SCH (08:28)
[2016-06-25] MEDS: METOPROLOL SUCCINATE 50 MG EXTENDED RELEASE TAB PO SCH (08:29)
[2016-06-25] MEDS: MULTIVITAMINS/MINERALS THERAPEUTIC TAB PO SCH (08:29)
[2016-06-25] MEDS: TOLTERODINE TARTRATE 4 MG CAP LA PO SCH (08:29)
[2016-06-25] MEDS: metFORMIN HCL 500 MG TAB PO SCH ×2 (08:29→16:37)
[2016-06-25] MEDS: VICTOZA 1.8 MG SQ SCH (08:30)
[2016-06-25] MEDS: [UNRECOGNIZED DRUG - OTHER] SQ SCH (08:30)
--- NOTE | 2016-06-25 09:28 | HHI.PR ---
Subjective Patient symptoms today Pt seen and examined. Feels well s/p IVC filter. Urine clear. Objective Vital Signs Vital Signs Date Time Temp Pulse Resp B/P Pulse Ox O2 Delivery O2 Flow Rate FiO2 06/25/16 08:00 97.4 107 18 145/68 98 06/25/16 05:27 97.2 104 18 141/69 97 06/25/16 00:00 97.5 93 16 174/79 97 06/24/16 20:00 96.4 93 16 174/79 97 06/24/16 16:00 96.8 101 16 133/80 98 06/24/16 12:00 97.4 103 16 149/81 98 Result Diagram: 06/25/1633006/25/16330 Objective Remarks Abd:soft,nt,nd Hurley: urine clear and hurley removed; void trial today. 07/05 Abd:soft,nt,nd Voiding clear urine Medications and IVs Current Medications Medications (Trade) Dose Ordered Sig/Liane Route Start Time Stop Time Status Last Admin (Lipitor) 40 mg HS PO 06/23/16 21:00 06/24/16 20:36 (Amaryl) 4 mg BIDAC PO 06/23/16 16:00 06/25/16 06:02 (Mag-Ox) 400 mg DAILY@11 PO 06/24/16 11:00 06/24/16 11:00 (Glucophage) 1,000 mg BIDPC PO 06/23/16 18:00 06/25/16 08:29 (Toprol Xl) 50 mg DAILY PO 06/24/16 09:00 06/25/16 08:29 (Flomax) 0.4 mg HS PO 06/23/16 21:00 06/24/16 20:36 (Detrol La) 4 mg DAILY PO 06/24/16 09:00 06/25/16 08:29 (Levemir Inj) 32 units BID SQ 06/23/16 21:00 06/25/16 08:28 Patient Own Medication PT OWN MED: VICTOZA (LIRAGLUTI... DAILY SQ 06/24/16 09:00 Multivitamins/ Minerals Therapeutic 1 tab 1 tab DAILY PO 06/24/16 09:00 06/25/16 08:29 (1/2 NS 1000 ml Inj) 1,000 ml @ 75 mls/hr [id number] IV 06/23/16 14:00 06/25/16 06:02 (NS Flush) 2 ml UNSCH PRN IV FLUSH 06/23/16 12:45 (NS Flush) 2 ml BID IV FLUSH 06/23/16 21:00 06/24/16 20:37 (Zofran Inj) 4 mg Q6H PRN IVP 06/23/16 12:45 (Narcan Inj) 0.4 mg UNSCH PRN IV 06/23/16 12:45 (D50w (Vial) Inj) 25 ml UNSCH PRN IV PUSH 06/23/16 13:00 Glucagon 1 mg 1 mg UNSCH PRN OTHER 06/23/16 13:00 (Heparin-D5W Inj) 250 ml @ 0 mls/hr TITRATE IV 06/23/16 21:00 06/24/16 13:58 (Heparin Inj) 5,000 units UNSCH PRN IV 06/23/16 21:00 (Heparin Inj) 2,500 units UNSCH PRN IV 06/23/16 21:00 Assessment and Plan Assessment and Plan 70 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
--- NOTE | 2016-06-25 09:30 | PD.ONC.PN ---
Subjective Subjective Remarks Afebrile overnight. Patient received IVC filter last night. He reports he requested the permanent filter. No bleeding. Objective Data Date Time Temp Pulse Resp B/P Pulse Ox O2 Delivery O2 Flow Rate FiO2 06/25/16 08:00 97.4 107 18 145/68 98 06/25/16 05:27 97.2 104 18 141/69 97 06/25/16 00:00 97.5 93 16 174/79 97 06/24/16 20:00 96.4 93 16 174/79 97 06/24/16 16:00 96.8 101 16 133/80 98 06/24/16 12:00 97.4 103 16 149/81 98 Result Diagram: 06/25/16 0331 06/25/16 033 Laboratory Results Laboratory Tests Test 06/24/16 06/24/16 06/25/16 12:28 19:31 03:31 Activated Partial 27.8 SEC 27.1 SEC 60.7 SEC Thromboplast Time White Blood Count 7.5 TH/MM3 Red Blood Count 3.51 MIL/MM3 Hemoglobin 9.5 GM/DL Hematocrit 29.2 % Mean Corpuscular Volume 83.1 FL Mean Corpuscular Hemoglobin 27.0 PG Mean Corpuscular Hemoglobin 32.5 % Concent Red Cell Distribution Width 21.0 % Platelet Count 275 TH/MM3 Mean Platelet Volume 8.1 FL Sodium Level 141 MEQ/L Potassium Level 3.9 MEQ/L Chloride Level 106 MEQ/L Carbon Dioxide Level 27.3 MEQ/L Anion Gap 8 MEQ/L Blood Urea Nitrogen 9 MG/DL Creatinine 0.75 MG/DL Estimat Glomerular Filtration 103 ML/MIN Rate Random Glucose 74 MG/DL Calcium Level 8.1 MG/DL Culture Results Microbiology Date/Time Procedure Status Source Growth 06/23/16 10:15 Urine Culture - Final Complete Urine Catheterized Urine NO GROWTH IN 48 HOURS. Administered Medications Medications (Trade) Dose Ordered Sig/Liane Route PRN Reason Start Time Stop Time Status Last Admin Dose Admin Atorvastatin Calcium (Lipitor) 40 mg HS PO 06/23/16 21:00 06/24/16 20:36 Glimepiride (Amaryl) 4 mg BIDAC PO 06/23/16 16:00 06/25/16 06:02 Magnesium Oxide (Mag-Ox) 400 mg DAILY@11 PO 06/24/16 11:00 06/24/16 11:00 Metformin HCl (Glucophage) 1,000 mg BIDPC PO 06/23/16 18:00 06/25/16 08:29 Metoprolol Succinate (Toprol Xl) 50 mg DAILY PO 06/24/16 09:00 06/25/16 08:29 Tamsulosin HCl (Flomax) 0.4 mg HS PO 06/23/16 21:00 06/24/16 20:36 Tolterodine Tartrate (Detrol La) 4 mg DAILY PO 06/24/16 09:00 06/25/16 08:29 Insulin Detemir (Levemir Inj) 32 units BID SQ 06/23/16 21:00 06/25/16 08:28 Multivitamins/ Minerals Therapeutic 1 tab 1 tab DAILY PO 06/24/16 09:00 06/25/16 08:29 Sodium Chloride (1/2 NS 1000 ml Inj) 1,000 ml @ 75 mls/hr [id number] IV 06/23/16 14:00 06/25/16 06:02 Sodium Chloride 2 ml 2 ml BID IV FLUSH 06/23/16 21:00 06/24/16 20:37 Heparin Sodium/ Dextrose (Heparin-D5W Inj) 250 ml @ 0 mls/hr TITRATE IV 06/23/16 21:00 06/24/16 13:58 Objective Remarks GENERAL: Elderly male, sitting up in bed in nad. SKIN: Warm and dry. HEAD: Normocephalic. EYES: No injection or drainage. NECK: Supple, trachea midline. CARDIOVASCULAR: Regular rate and rhythm without murmurs. RESPIRATORY: Breath sounds equal bilaterally. No accessory muscle use. GASTROINTESTINAL: Abdomen soft, non-tender, nondistended. EXTREMITIES: No cyanosis, or edema. MUSCULOSKELETAL: Adequate muscle tone. NEUROLOGICAL: No obvious focal deficit. Awake, alert, and oriented x3. Assessment/Plan Problem List: (1) DVT (deep venous thrombosis) Status: Acute Plan: 06/25: s/p IVC filter placement last night. Dr. Escudero spoke with patient's oncologist. She wants the IVC filter and for the patient to continue the same dose of Lovenox he was on before being admitted. will stop heparin drip and start the Lovenox 60mg SQ BID that patient was on prior to admission. discussed with patient in detail. clear for discharge 06/24: currently on heparin drip. UPDATE: Dr. Escudero d/w patient's physicians at [facility], will place order for IVC filter placement. --diagnosed in late May --discharged home on Lovenox --developed gross hematuria and bladder obstruction from the hematuria while on Lovenox --carries a increased surgical risk due to DVT and pulmonary embolism when the anticoagulation will be held for the surgery. --recommendation is that he should have an IVC filter placed to decrease the perioperative morbidity and mortality due to the acute DVT and pulmonary embolism. (2) Bladder cancer Status: Acute Plan: -- treated at [facility]. --Dr. Goldy Vaughan,urologist. [phone]. --medical oncologist Dr. Sherman, . --cisplatin and Gemzar chemotherapy x 7cycles -- restaging scan showed tumor in the bladder has gone down from 1.7 cm to 0.4 cm. -- radical cystoprostatectomy on July 14 at [facility]. Assessment 70y/o male admitted with hematuria. Hematology consulted for LLE DVT +PE , anticoagulation recommendations history of diabetes mellitus, hypertension, hypercholesterolemia, BPH. h/o Urinary bladder cancer Diabetes mellitus Hypercholesterolemia Hypertension BPH Rapid heartbeat Attending Statement no new c/o pt has elected for permanent IVC filter as opposed to temporary. Resume Lovenox per his oncologist recommendations. ok to d/c. Problem Qualifiers (1) DVT (deep venous thrombosis): Qualified Code: I82.402 - Acute deep vein thrombosis (DVT) of left lower extremity, unspecified vein Denise Peter Jun 25, 2016 09:30 Stewart Escudero MD Jun 25, 2016 22:49
--- NOTE | 2016-06-25 10:42 | HHI.DCPOC ---
Discharge Care Plan Diagnosis: (1) DVT (deep venous thrombosis) (2) Bladder cancer (3) Gross hematuria (4) Pulmonary embolism Goals to Promote Your Health * To prevent worsening of your condition and complications * To maintain your health at the optimal level Directions to Meet Your Goals Take your medications as prescribed Follow your dietary instruction Follow activity as directed Keep your appointments as scheduled Take your immunizations and boosters as scheduled If your symptoms worsen call your PCP, if no PCP go to Urgent Care Center or Emergency Room Smoking is Dangerous to Your Health. Avoid second hand smoke Call the 24-hour hour crisis hotline for domestic abuse at Rama Mai MD Jun 25, 2016 10:42
--- NOTE | 2016-06-25 10:42 | HHI.DS ---
Discharge Summary Admission Date Jun 23, 2016 at 12:21 Discharge Date: Jun 25, 2016 Admitting Diagnosis dvt, hematuria (1) Gross hematuria ICD Code: R31.0 Diagnosis: Principal (2) Pulmonary embolism ICD Code: I26.99 Diagnosis: Principal (3) DVT (deep venous thrombosis) ICD Code: I82.409 Diagnosis: Principal (4) Bladder cancer ICD Code: C67.9 Diagnosis: Principal Procedures permanent IVC filter Brief History - From Admission 70-year-old male past medical history of sent diagnosis of bladder cancer and saddle PE/left DVT who presented with hematuria. Patient stated that he is receiving chemotherapy at [facility] and that he is due for surgery. He stated that on 05/29/16 he was diagnosed with saddle pulmonary embolism and left DVT in which he was treated on Lovenox 80 mg by mouth twice a day but had some hematuria so his oncologist told him to decrease the doses to 60 mg twice a day. Patient stated that he was doing well on this dose but then yesterday he started to urinate clots then he stopped urinating this morning. They also yesterday he started getting more swelling in his left leg. He stated that prior from this after he was treated with Lovenox the swelling resolved. Patient denies any shortness of breathing. Patient stated that he just got back to [facility] last week. CBC/BMP: 06/25/16 0331 06/25/16 0331 Significant Findings Laboratory Tests Test 06/23/16 06/23/16 06/24/16 06/25/16 10:00 10:15 05:55 03:31 Red Blood Count 3.89 MIL/MM3 3.68 MIL/MM3 3.51 MIL/MM3 (4.50-5.90) (4.50-5.90) (4.50-5.90) Hemoglobin 10.5 GM/DL 9.8 GM/DL 9.5 GM/DL (13.0-17.0) (13.0-17.0) (13.0-17.0) Hematocrit 32.2 % 30.5 % 29.2 % (39.0-51.0) (39.0-51.0) (39.0-51.0) Mean Corpuscular Hemoglobin 26.9 PG 26.7 PG (27.0-34.0) (27.0-34.0) Red Cell Distribution Width 20.7 % 20.7 % 21.0 % (11.6-17.2) (11.6-17.2) (11.6-17.2) Monocytes (%) (Auto) 11.3 % (0.0-8.0) Prothrombin Time 12.1 SEC (9.8-11.6) Creatinine 1.34 MG/DL (0.60-1.30) Estimat Glomerular Filtration 53 ML/MIN (>89) 88 ML/MIN (>89) Rate Random Glucose 186 MG/DL 69 MG/DL (74-106) (74-106) Albumin 3.2 GM/DL (3.4-5.0) Urine Color RED (YELLW/STRAW) Urine Protein 100 mg/dL (NEG-TRACE) Urine Occult Blood LARGE (NEG) Urine WBC 12 /hpf (0-5) Urine Bacteria OCC /hpf (NONE) Activated Partial 41.3 SEC 60.7 SEC Thromboplast Time (24.3-30.1) (24.3-30.1) Calcium Level 8.2 MG/DL 8.1 MG/DL (8.5-10.1) (8.5-10.1) Imaging Last Impressions IVC Filter Placement X-Ray 06/24/16 0000 Signed Impressions: Service Date/Time: Friday, June 24, 2016 17:36 - CONCLUSION: Uncomplicated inferior vena cava filter placement as above. Brian Issa MD Lower Extremity Ultrasound 06/23/16 0000 Signed Impressions: Service Date/Time: Thursday, June 23, 2016 10:42 - CONCLUSION: DVT. K. Otto Palmer MD PE at Discharge GENERAL: This is a well-nourished, well-developed patient, in no apparent distress. NECK: Trachea midline. No JVD or lymphadenopathy. Supple, nontender, no meningeal signs. CARDIOVASCULAR: Regular rate and rhythm without murmurs, gallops, or rubs. RESPIRATORY: Clear to auscultation. Breath sounds equal bilaterally. No wheezes , rales, or rhonchi. GASTROINTESTINAL: Abdomen soft, non-tender, nondistended. No hepato-splenomegaly , or palpable masses. No guarding. MUSCULOSKELETAL: Extremities without clubbing, cyanosis. No joint tenderness, effusion, or edema noted. No calf tenderness. Negative Homans sign bilaterally. left LE edema improved. NEUROLOGICAL: Awake and alert. Cranial nerves II through XII intact. Motor and sensory grossly within normal limits. Five out of 5 muscle strength in all muscle groups. Normal speech. Pt update on day of discharge f/u for gross hematuria patient had IVF filter yesterday. he has no complaints. He stated he is doing well. Denied any CP, SOB, palpitations. He asking to have HgA1C done today. Hospital Course 70-year-old male with bladder cancer status post chemotherapy and history of recent PE/DVT who presented with hematuria Gross Hematuria -this was due to Patient currently being treated for bladder cancer with chemotherapy and is on Lovenox for PE/DVT. He had dosage reduce at the end of May from 80 mg of Lovenox to 60 mg twice a day. - Dr. Tejada, Urologist and Dr. Escudero, oncologist ff. -hurley placed in ED and hematuria resolved the next day so hurley removed. -Hospice Administrator recommend heparin gtt and IVF filter which was done since his oncologist and urologist were okay with this. -they recommended restart lovenox at same dosage. IVC filter place on 06/24/16 with no complication. Bladder cancer status post chemotherapy -Per patient he scheduled for surgery. -Can follow-up with his surgeon and oncologist as outpatient. DVT/PE -This was a recent diagnosis and the swelling on his left leg has worsened. Ultrasound confirmed DVT. -see treatment as above. Type 2 diabetes insulin-dependent -Resume home medication. Start patient on insulin sliding scale. -patient told can have HgA1C down with his PCP as outpatient. BPH/hypertension/hyperlipidemia - home medication resumed. Pt Condition on Discharge: Good Discharge Disposition: Discharge Home Discharge Time: <= 30 minutes Discharge Instructions DIET: Follow Instructions for: Heart Healthy Diet, Diabetic Diet Activities you can perform: Regular-No Restrictions Follow up Referrals: Oncology - 1 Week PCP Follow-up - 1 Week Urology - 1 Week Continued Medications: Atorvastatin (Atorvastatin) 40 Mg Tab 40 MG PO HS Cholesterol Management #30 Ref 0 TAB Enoxaparin Inj (Lovenox Inj) 60 Mg/0.6 Ml Syr 60 MG SQ DAILY Blood Clot Prevention Ref 0 SYRINGE Glimepiride (Glimepiride) 4 Mg Tab 4 MG PO BIDAC Blood Sugar Management #60 Ref 0 TAB Insulin Glargine Inj (Lantus Solostar Pen Inj) 300 Unit/3 Ml Pen 32 UNITS SQ BID Blood Sugar Management Ref 0 PEN Liraglutide Inj (Victoza Inj) 18 Mg/3 Ml Pen 1.8 MG SQ DAILY #1 Ref 0 PEN Magnesium Oxide (Magnesium Oxide) 400 Mg Tab 400 MG PO DAILY Nutritional Supplement Ref 0 TAB Metformin (Glucophage) 1,000 Mg Tab 1000 MG PO BIDPC With a meal Blood Sugar Management #60 Ref 0 TAB Metoprolol Succinate ER 24 HR (Metoprolol Succinate ER 24 HR) 50 Mg Tab 50 MG PO DAILY #90 Ref 0 TAB Multiple Vitamins W/ Minerals (Centrum Silver) 1 Tab 1 TAB PO DAILY Nutritional Supplement Ref 0 TAB Tamsulosin (Tamsulosin) 0.4 Mg Cap 0.4 MG PO HS Manage Prostate Problems #30 Ref 0 CAP Tolterodine ER (Tolterodine ER) 4 Mg Cap 4 MG PO DAILY Urinary Symptom Managemen #30 Ref 0 CAP Rama Mai MD Jun 25, 2016 10:42
[2016-06-25] MEDS: ENOXAPARIN SODIUM 60 MG/0.6 ML SYRINGE SQ SCH ×2 (11:00→16:38)
[2016-06-25 11:04] LABS: APTT (PATIENT) 94.1 SEC (24.3-30.1)
[2016-06-25] MEDS: MAGNESIUM OXIDE 400 MG TAB PO SCH (11:47)
[2016-06-25 12:00] VITALS: BP 154/75; PULSE 103; RESP 20; TEMP 96.4; O2SAT 98
[2016-06-25 15:29] LABS: APTT (PATIENT) 25.9 SEC (24.3-30.1)
[2016-06-25 16:00] VITALS: BP 164/78; PULSE 103; RESP 16; TEMP 98.1; O2SAT 98
== END 2016-06-25 17:35 | disposition home or self-care (01) | DRG 673 ==
LOC: NEPE 09:13 → NEDA 12:21 → N07B 19:25
PROVIDERS: ADMIT Family Medicine; ATTEND Family Medicine
PROC: 06H03DZ Insertion of Intraluminal Device into Inferior Vena Cava, Percutaneous Approach (ICD-10-PCS; principal; 2016-06-24)
PROC: B5191ZZ Fluoroscopy of Inferior Vena Cava using Low Osmolar Contrast (ICD-10-PCS; 2016-06-24)
DX: R31.0 Gross hematuria (principal); I26.92 Saddle embolus of pulmonary artery without acute cor pulmonale; I82.402 Acute embolism and thrombosis of unspecified deep veins of left lower extremity; E11.9 Type 2 diabetes mellitus without complications; C67.9 Malignant neoplasm of bladder, unspecified; I10 Essential (primary) hypertension; E78.5 Hyperlipidemia, unspecified; N32.89 Other specified disorders of bladder; N40.1 Benign prostatic hyperplasia with lower urinary tract symptoms; R33.8 Other retention of urine; Z79.01 Long term (current) use of anticoagulants; Z79.4 Long term (current) use of insulin; Z87.891 Personal history of nicotine dependence; Z92.21 Personal history of antineoplastic chemotherapy; Z96.641 Presence of right artificial hip joint
CPT/HCPCS: 37191; 51702; 80048; 80053; 81001; 82948; 85025; 85027; 85610; 85730; 87086; 93971; C1769; C1880; J1644; J1650; J1815; J3010; Q9967

== ENCOUNTER → 2016-11-05 | Outpatient (CLI) | payer MEDICARE, BC ==
[~2016-11-05] MED LIST changes: +CENTTAB PO; +ENOX60P SQ; -Hydrocodone/Acetaminophen PO; +INFL1INJ52 IM; +PNEU25IN IM; +TAMS0.4C4 PO; +TOLT1CAP PO
[2016-11-05 13:17] LABS: ANION GAP 8 MEQ/L (5-15); BICARBONATE 25.7 MEQ/L (21.0-32.0); BLOOD UREA NITROGEN 18 MG/DL (7-18); CHLORIDE 105 MEQ/L (98-107); GLOMERULAR FILTRATION RATE 63 ML/MIN (>89); GLUCOSE,FASTING 97 MG/DL (74-99); POTASSIUM 4.2 MEQ/L (3.5-5.1); SODIUM (NA) 139 MEQ/L (136-145)
[2016-11-05 17:21] LABS: HEMOGLOBIN A1a 1.3 %; HEMOGLOBIN A1b 2.1 %; HEMOGLOBIN Ao 82.5 %; HEMOGLOBIN P3 4.6 %
== END ==
LOC: PLAB 09:10
DX: E11.65 Type 2 diabetes mellitus with hyperglycemia (principal)
CPT/HCPCS: 36415; 80048; 83036

== ENCOUNTER → 2016-11-27 | Outpatient (CLI) | payer MEDICARE, BC ==
[2016-11-27 16:49] LABS: AUTOMATED NEUTROPHIL # 5.8 TH/MM3 (1.8-7.7); BASOPHIL # 0.1 TH/MM3 (0-0.2); BASOPHIL % 0.7 % (0.0-2.0); EOSINOPHIL # 0.1 TH/MM3 (0-0.4); EOSINOPHIL % 1.5 % (0.0-4.0); HEMATOCRIT 35.1 % (39.0-51.0); HEMO FLAGS DIFF FINAL; LYMPH % 28.4 % (9.0-44.0); LYMPHOCYTE # 2.6 TH/MM3 (1.0-4.8); MEAN CORPUSCULAR HEMOGLOBIN 24.6 PG (27.0-34.0); MEAN CORPUSCULAR HGB CONC 31.2 % (32.0-36.0); MONO % 6.2 % (0.0-8.0); NEUT % 63.2 % (16.0-70.0); PLATELET COUNT 477 TH/MM3 (150-450); RED BLOOD COUNT 4.44 MIL/MM3 (4.50-5.90); RED CELL DISTRIBUTION WIDTH 18.9 % (11.6-17.2); WHITE BLOOD COUNT 9.2 TH/MM3 (4.0-11.0)
[2016-11-27 16:54] LABS: ALT (GPT) 20 U/L (12-78); ANION GAP 6 MEQ/L (5-15); AST (GOT) 13 U/L (15-37); BICARBONATE 25.2 MEQ/L (21.0-32.0); BLOOD UREA NITROGEN 26 MG/DL (7-18); CHLORIDE 107 MEQ/L (98-107); GLOMERULAR FILTRATION RATE 60 ML/MIN (>89); GLUCOSE,FASTING 152 MG/DL (74-99); POTASSIUM 5.2 MEQ/L (3.5-5.1); SODIUM (NA) 138 MEQ/L (136-145)
[2016-11-27 17:19] LABS: ALKALINE PHOSPHATASE 81 U/L (45-117); HDL CHOLESTEROL 39.8 MG/DL (40.0-60.0); LDL CHOLESTEROL 64 MG/DL (0-99); TOTAL BILIRUBIN ADULT 0.2 MG/DL (0.2-1.0); TRANSFERRIN IRON PROFILE 225 MG/DL (200-360)
== END ==
LOC: PLAB 11:39
PROVIDERS: ATTEND Physician Assistant Medical
DX: E78.5 Hyperlipidemia, unspecified (principal); R53.83 Other fatigue; D64.9 Anemia, unspecified; I10 Essential (primary) hypertension
CPT/HCPCS: 36415; 80053; 80061; 82306; 82607; 82746; 83540; 83550; 84443; 85025

== ENCOUNTER → 2016-12-19 | Outpatient (CLI) | payer MEDICARE, BC ==
[~2016-12-19] MED LIST changes: -INFL1INJ52 IM; -LANTINJ SQ; -PNEU25IN IM; -VICT18IN SQ
[2016-12-19 13:53] LABS: AUTOMATED NEUTROPHIL # 5.5 TH/MM3 (1.8-7.7); BASOPHIL # 0.1 TH/MM3 (0-0.2); BASOPHIL % 1.2 % (0.0-2.0); EOSINOPHIL # 0.2 TH/MM3 (0-0.4); HEMATOCRIT 33.4 % (39.0-51.0); HEMO FLAGS DIFF FINAL; LYMPH % 29.9 % (9.0-44.0); LYMPHOCYTE # 2.8 TH/MM3 (1.0-4.8); MEAN CELL VOLUME 77.9 FL (80.0-100.0); MEAN CORPUSCULAR HEMOGLOBIN 24.7 PG (27.0-34.0); MEAN CORPUSCULAR HGB CONC 31.7 % (32.0-36.0); MONO % 7.5 % (0.0-8.0); NEUT % 59.4 % (16.0-70.0); PLATELET COUNT 401 TH/MM3 (150-450); RED BLOOD COUNT 4.29 MIL/MM3 (4.50-5.90); RED CELL DISTRIBUTION WIDTH 18.4 % (11.6-17.2); WHITE BLOOD COUNT 9.3 TH/MM3 (4.0-11.0)
[2016-12-19 14:28] LABS: BICARBONATE 24.2 MEQ/L (21.0-32.0)
== END ==
LOC: PLAB 09:01
PROVIDERS: ATTEND Physician Assistant Medical
DX: E87.5 Hyperkalemia (principal); D64.9 Anemia, unspecified; Z79.01 Long term (current) use of anticoagulants; Z79.899 Other long term (current) drug therapy
CPT/HCPCS: 36415; 80048; 82272; 85025

== ENCOUNTER 2017-01-17 03:28 | Emergency (ER) | payer MEDICARE, BC ==
[~2017-01-17] VITALS: Ht 177.8 cm; Wt 78.0 kg
[~2017-01-17 03:28] MED LIST changes: +METO1TAB9 PO; -METO50TA11 PO
[2017-01-17 03:29] VITALS: BP 125/70; PULSE 123; RESP 18; TEMP 97.7; O2SAT 97
[2017-01-17] MEDS ORDERED: SODIUM CHLOR 0.9% 1000 ML INJ 1,000 ML IV ONE (04:00)
[2017-01-17 04:08] VITALS: O2SAT 97
[2017-01-17] MEDS ORDERED: MULT1TAB (04:23)
[2017-01-17] MEDS ORDERED: APIX5TAB PO (04:24)
--- NOTE | 2017-01-17 04:24 | PD ---
HPI Chief Complaint: Fever Time Seen by Provider: 03:55 Travel History International Travel<30 days: No Contact w/Intl Traveler<30days: No Traveled to known affect area: No History of Present Illness HPI This 71-year-old man who presents to the emergency department complaining of fever. 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 He is done well and was just released to come home after his 6 month appointment recently. Over the past 2-3 days he began to feel little bit unwell. He began having fevers and chills. Fevers up to 102. He's had some slight cough but no nausea or vomiting. No change in his urine output from his urostomy. History Past Medical History Narrative Medical Bladder cancer DVT, Eliquis Diabetes Social History Alcohol Use: No Tobacco Use: No Allergies-Medications (Allergen,Severity, Reaction): Coded Allergies: No Known Allergies (Unverified Adverse Reaction, Unknown, 01/17/17) Reported Meds & Prescriptions Reported Meds & Active Scripts Active Metoprolol Succinate ER 24 HR (Metoprolol Succinate) 50 Mg Tab 50 Mg PO DAILY Atorvastatin (Atorvastatin Calcium) 40 Mg Tab 40 Mg PO HS Reported B-12 (Cyanocobalamin) 2,000 Mcg Tab 2,000 Mcg PO DAILY [Iron] 1 Tab Eliquis (Apixaban) 5 Mg Tab 5 Mg PO BID Centrum Silver Adult 50+ (Multiple Vitamins W/ Minerals) 0.4 Mg-300 Mcg-250 Mcg Tab Magnesium Oxide 400 Mg Tab 400 Mg PO DAILY Glimepiride 4 Mg Tab 4 Mg PO BIDAC Glucophage (Metformin HCl) 1,000 Mg Tab 1,000 Mg PO BIDPC With a meal Review of Systems Except as stated in HPI: all other systems reviewed are Neg Physical Exam Narrative GENERAL: Well-appearing 71-year-old man, no acute distress. SKIN: Focused skin assessment warm/dry. HEAD: Atraumatic. Normocephalic. EYES: Pupils equal and round. No scleral icterus. No injection or drainage. ENT: No nasal bleeding or discharge. Mucous membranes pink and moist. NECK: Trachea midline. No JVD. CARDIOVASCULAR: Regular rate and rhythm. No murmur appreciated. RESPIRATORY: No accessory muscle use. Clear to auscultation. Breath sounds equal bilaterally. GASTROINTESTINAL: Abdomen is flat and soft. Urostomy in the right side of the abdomen, clear yellow urine. MUSCULOSKELETAL: No obvious deformities. No clubbing. No cyanosis. No edema. NEUROLOGICAL: Awake and alert. No obvious cranial nerve deficits. Motor grossly within normal limits. Normal speech. PSYCHIATRIC: Appropriate mood and affect; insight and judgment normal. Data Data Last Documented VS Vital Signs Date Time Temp Pulse Resp B/P (MAP) Pulse Ox O2 Delivery O2 Flow Rate FiO2 01/17/17 05:49 01/17/17 04:08 97 Room Air 01/17/17 03:29 97.7 123 18 Orders Orders Complete Blood Count With Diff (01/17/17 03:55) Comprehensive Metabolic Panel (01/17/17 03:55) Lactic Acid Sepsis Protocol (01/17/17 03:55) Urinalysis - C+S If Indicated (01/17/17 03:55) Influenzae A/B Antigen (01/17/17 03:55) Blood Culture (01/17/17 03:55) Chest, Single Ap (01/17/17 03:55) Blood Glucose (01/17/17 03:55) Ecg Monitoring (01/17/17 03:55) Iv Access Insert/Monitor (01/17/17 03:55) Cath For Specimen (01/17/17 03:55) Oximetry (01/17/17 03:55) Oxygen Administration (01/17/17 03:55) Sodium Chlor 0.9% 1000 Ml Inj (Ns 1000 M (01/17/17 04:00) Urine Culture (01/17/17 04:15) Azithromycin (Zithromax) (01/17/17 06:00) Labs Laboratory Tests Test 01/17/17 04:05 01/17/17 04:15 White Blood Count 13.6 TH/MM3 Red Blood Count 4.34 MIL/MM3 Hemoglobin 11.1 GM/DL Hematocrit 33.9 % Mean Corpuscular Volume 78.1 FL Mean Corpuscular Hemoglobin 25.6 PG Mean Corpuscular Hemoglobin Concent 32.7 % Red Cell Distribution Width 18.5 % Platelet Count 432 TH/MM3 Mean Platelet Volume 8.6 FL Neutrophils (%) (Auto) 69.4 % Lymphocytes (%) (Auto) 22.3 % Monocytes (%) (Auto) 7.4 % Eosinophils (%) (Auto) 0.3 % Basophils (%) (Auto) 0.6 % Neutrophils # (Auto) 9.5 TH/MM3 Lymphocytes # (Auto) 3.0 TH/MM3 Monocytes # (Auto) 1.0 TH/MM3 Eosinophils # (Auto) 0.0 TH/MM3 Basophils # (Auto) 0.1 TH/MM3 CBC Comment DIFF FINAL Differential Comment Blood Urea Nitrogen 20 MG/DL Creatinine 1.23 MG/DL Random Glucose 108 MG/DL Total Protein 8.7 GM/DL Albumin 2.7 GM/DL Calcium Level 9.0 MG/DL Alkaline Phosphatase 94 U/L Aspartate Amino Transf (AST/SGOT) 19 U/L Alanine Aminotransferase (ALT/SGPT) 28 U/L Total Bilirubin 0.4 MG/DL Sodium Level 135 MEQ/L Potassium Level 4.0 MEQ/L Chloride Level 100 MEQ/L Carbon Dioxide Level 24.8 MEQ/L Anion Gap 10 MEQ/L Estimat Glomerular Filtration Rate 58 ML/MIN Lactic Acid Level 2.0 mmol/L Urine Color YELLOW Urine Turbidity CLOUDY Urine pH 6.5 Urine Specific [place] 1.018 Urine Protein 30 mg/dL Urine Glucose (UA) NEG mg/dL Urine Ketones NEG mg/dL Urine Occult Blood MOD Urine Nitrite POS Urine Bilirubin NEG Urine Urobilinogen LESS THAN 2.0 MG/DL Urine Leukocyte Esterase LARGE Urine RBC 78 /hpf Urine WBC /hpf Urine WBC Clumps OCC Urine Bacteria MANY /hpf Microscopic Urinalysis Comment CATH-CULTURE IND MDM Medical Decision Making Medical Screen Exam Complete: Yes Emergency Medical Condition: Yes Interpretation(s) LABS: CBC remarkable for mild leukocytosis, mild anemia. CMP unremarkable. Lactate 2.0 UA contaminated, significant pyuria Testing x-ray: No acute cardiopulmonary disease. Differential Diagnosis Infection, fever, UTI, pneumonia, URI, other Narrative Course Medical decision-making 71-year-old man, presents with fevers chills and a little bit of congestion. Looks overall well. Has a relatively new urostomy. We'll check labs, catheter urine, x-ray, fluid, reassess. FINAL: Initial workups unremarkable. With fever and URI symptoms, likely viral URI. Given the patient's comorbidities HER with antibiotics for bacterial bronchitis. Diagnosis Primary Impression: Acute bronchitis Additional Instructions: take azithromycin as prescribed. Follow-up with your primary doctor in the next 2-4 days. Return to the emergency department for any new or worsening symptoms. Med/Other Pt SpecificInfo: Prescription(s) given Scripts Azithromycin (Azithromycin) 250 Mg Tab 250 MG PO DAILY for Infection, #4 TAB 0 Refills Prov: Toño Stephen MD 01/17/17 Disposition: 01 DISCHARGE HOME Condition: Stable Toño Stephen MD Jan 17, 2017 04:24
[2017-01-17] MEDS ORDERED: IRONTAB5 (04:25)
[2017-01-17] MEDS ORDERED: B-122000 PO (04:25)
[2017-01-17 04:31] LABS: AUTOMATED NEUTROPHIL # 9.5 TH/MM3 (1.8-7.7); BASOPHIL # 0.1 TH/MM3 (0-0.2); BASOPHIL % 0.6 % (0.0-2.0); EOSINOPHIL % 0.3 % (0.0-4.0); HEMATOCRIT 33.9 % (39.0-51.0); HEMO FLAGS DIFF FINAL; LYMPH % 22.3 % (9.0-44.0); MEAN CELL VOLUME 78.1 FL (80.0-100.0); MEAN CORPUSCULAR HEMOGLOBIN 25.6 PG (27.0-34.0); MEAN CORPUSCULAR HGB CONC 32.7 % (32.0-36.0); MONO % 7.4 % (0.0-8.0); NEUT % 69.4 % (16.0-70.0); PLATELET COUNT 432 TH/MM3 (150-450); RED BLOOD COUNT 4.34 MIL/MM3 (4.50-5.90); RED CELL DISTRIBUTION WIDTH 18.5 % (11.6-17.2); WHITE BLOOD COUNT 13.6 TH/MM3 (4.0-11.0)
--- NOTE | 2017-01-17 04:41 | RADRPT ---
EXAM DATE/TIME: 01/17/2017 03:57 [facility] COMPARISON: No previous studies available for comparison. INDICATIONS : Flu symptoms Fever, cough, congestion for 2 days. MEDICAL HISTORY : Diabetes mellitus type II. Hypertension Carcinoma, bladder. DVT. Saddle pulmonary embolism SURGICAL HISTORY : port placement. Chemotherapy. ENCOUNTER: Initial ACUITY: 2 days PAIN SCORE: 0/10 LOCATION: Bilateral chest FINDINGS: A single view of the chest demonstrates the lungs to be symmetrically aerated without evidence of mas s, infiltrate or effusion. The cardiomediastinal contours are unremarkable. Osseous structures are intact. CONCLUSION: 1. No acute cardiopulmonary disease. Miko Chaudhari MD on January 17, 2017 at 4:39 Board Certified Radiologist. This report was verified electronically.
[2017-01-17 04:44] LABS: BACTERIA, URINE MANY /hpf; BLOOD, URINE MOD (NEG); GLUCOSE,URINE NEG (NEG); KETONE, URINE NEG (NEG); NITRITE,URINE POS (NEG); PH, URINE 6.5 (5.0-8.5); URINE COLOR YELLOW (YELLW/STRAW)
[2017-01-17 04:45] LABS: ANION GAP 10 MEQ/L (5-15); AST (GOT) 19 U/L (15-37); BICARBONATE 24.8 MEQ/L (21.0-32.0); BLOOD UREA NITROGEN 20 MG/DL (7-18); CHLORIDE 100 MEQ/L (98-107); GLOMERULAR FILTRATION RATE 58 ML/MIN (>89); SODIUM (NA) 135 MEQ/L (136-145)
[2017-01-17 04:45] LABS: COMMENT (UR) CATH-CULTURE IND; CULTURE IF INDICATED CATH CULTURE IND
[2017-01-17 04:46] LABS: ALT (GPT) 28 U/L (12-78)
[2017-01-17 04:47] LABS: ALKALINE PHOSPHATASE 94 U/L (45-117); TOTAL BILIRUBIN ADULT 0.4 MG/DL (0.2-1.0)
[2017-01-17] MEDS ORDERED: AZIT250T3 PO (05:55)
[2017-01-17] MEDS ORDERED: AZITHROMYCIN 250 MG TAB PO ONE (06:00)
== END 2017-01-17 06:06 | disposition home or self-care (01) ==
LOC: NEPC 03:28
DX: J20.9 Acute bronchitis, unspecified (principal); Z85.46 Personal history of malignant neoplasm of prostate; Z92.21 Personal history of antineoplastic chemotherapy; E11.9 Type 2 diabetes mellitus without complications; Z86.718 Personal history of other venous thrombosis and embolism; Z79.01 Long term (current) use of anticoagulants
CPT/HCPCS: 71010; 80053; 81001; 83605; 85025; 87040; 87077; 87086; 87186; 87804; 96360; 99284; J7030; P9612

== ENCOUNTER → 2017-01-28 | Outpatient (CLI) | payer MEDICARE, BC ==
[~2017-01-28] MED LIST changes: +APIX5TAB PO; +AZIT250T3 PO; +B-122000 PO; -CENTTAB PO; -ENOX60P SQ; +IRONTAB5; +MULT1TAB; -TAMS0.4C4 PO; -TOLT1CAP PO
[2017-01-28 14:04] LABS: AUTOMATED NEUTROPHIL # 6.7 TH/MM3 (1.8-7.7); BASOPHIL # 0.1 TH/MM3 (0-0.2); BASOPHIL % 0.9 % (0.0-2.0); EOSINOPHIL # 0.1 TH/MM3 (0-0.4); EOSINOPHIL % 1.3 % (0.0-4.0); HEMATOCRIT 33.4 % (39.0-51.0); HEMO FLAGS DIFF FINAL; LYMPH % 29.1 % (9.0-44.0); LYMPHOCYTE # 3.1 TH/MM3 (1.0-4.8); MEAN CELL VOLUME 78.9 FL (80.0-100.0); MEAN CORPUSCULAR HEMOGLOBIN 25.7 PG (27.0-34.0); MEAN CORPUSCULAR HGB CONC 32.5 % (32.0-36.0); MONO % 6.1 % (0.0-8.0); NEUT % 62.6 % (16.0-70.0); PLATELET COUNT 593 TH/MM3 (150-450); RED BLOOD COUNT 4.23 MIL/MM3 (4.50-5.90); RED CELL DISTRIBUTION WIDTH 18.4 % (11.6-17.2); WHITE BLOOD COUNT 10.7 TH/MM3 (4.0-11.0)
[2017-01-28 14:25] LABS: ANION GAP 9 MEQ/L (5-15); BICARBONATE 26.2 MEQ/L (21.0-32.0); BLOOD UREA NITROGEN 20 MG/DL (7-18); CHLORIDE 104 MEQ/L (98-107); GLOMERULAR FILTRATION RATE 69 ML/MIN (>89); GLUCOSE,FASTING 118 MG/DL (74-99); POTASSIUM 4.6 MEQ/L (3.5-5.1); SODIUM (NA) 139 MEQ/L (136-145)
[2017-01-28 17:20] LABS: HEMOGLOBIN A1a 1.4 %; HEMOGLOBIN A1b 2.3 %; HEMOGLOBIN Ao 81.1 %; HEMOGLOBIN LA1C 2.4 %; HEMOGLOBIN P3 6.4 %
== END ==
LOC: PLAB 11:37
PROVIDERS: ATTEND Physician Assistant Medical
DX: E11.65 Type 2 diabetes mellitus with hyperglycemia (principal); D64.9 Anemia, unspecified; N39.0 Urinary tract infection, site not specified
CPT/HCPCS: 36415; 80048; 83036; 85025

== ENCOUNTER → 2017-02-20 | Outpatient (CLI) | payer MEDICARE, BC ==
[~2017-02-20] MED LIST changes: -AZIT250T3 PO; -IRONTAB5; -MAGN400T2 PO
[2017-02-20 13:21] LABS: AUTOMATED NEUTROPHIL # 6.2 TH/MM3 (1.8-7.7); BASOPHIL # 0.1 TH/MM3 (0-0.2); BASOPHIL % 0.7 % (0.0-2.0); EOSINOPHIL # 0.2 TH/MM3 (0-0.4); EOSINOPHIL % 1.8 % (0.0-4.0); HEMATOCRIT 33.7 % (39.0-51.0); HEMO FLAGS DIFF FINAL; LYMPH % 31.5 % (9.0-44.0); LYMPHOCYTE # 3.3 TH/MM3 (1.0-4.8); MEAN CELL VOLUME 79.1 FL (80.0-100.0); MEAN CORPUSCULAR HEMOGLOBIN 25.1 PG (27.0-34.0); MEAN CORPUSCULAR HGB CONC 31.7 % (32.0-36.0); MONO % 7.2 % (0.0-8.0); NEUT % 58.8 % (16.0-70.0); PLATELET COUNT 390 TH/MM3 (150-450); RED BLOOD COUNT 4.26 MIL/MM3 (4.50-5.90); RED CELL DISTRIBUTION WIDTH 18.8 % (11.6-17.2); WHITE BLOOD COUNT 10.6 TH/MM3 (4.0-11.0)
[2017-02-20 13:43] LABS: TRANSFERRIN IRON PROFILE 212 MG/DL (200-360)
== END ==
LOC: PLAB 10:50
PROVIDERS: ATTEND Physician Assistant Medical
DX: D64.9 Anemia, unspecified (principal); N39.0 Urinary tract infection, site not specified; D47.3 Essential (hemorrhagic) thrombocythemia; E61.1 Iron deficiency; R31.9 Hematuria, unspecified
CPT/HCPCS: 36415; 83540; 83550; 85025

== ENCOUNTER 2017-03-24 12:55 | Emergency (ER) | payer MEDICARE, BC ==
[2017-03-24 12:56] VITALS: BP 114/80; PULSE 135; RESP 18; TEMP 98.9; O2SAT 95
[2017-03-24 13:34] LABS: AUTOMATED NEUTROPHIL # 14.3 TH/MM3 (1.8-7.7); BASOPHIL # 0.1 TH/MM3 (0-0.2); BASOPHIL % 0.7 % (0.0-2.0); EOSINOPHIL % 0.1 % (0.0-4.0); HEMATOCRIT 33.6 % (39.0-51.0); HEMOGLOBIN 10.9 GM/DL (13.0-17.0); LYMPH % 14.3 % (9.0-44.0); LYMPHOCYTE # 2.6 TH/MM3 (1.0-4.8); MEAN CELL VOLUME 76.8 FL (80.0-100.0); MEAN CORPUSCULAR HEMOGLOBIN 24.9 PG (27.0-34.0); MEAN CORPUSCULAR HGB CONC 32.4 % (32.0-36.0); MONOCYTE # 1.1 TH/MM3 (0-0.9); NEUT % 78.9 % (16.0-70.0); PLATELET COUNT 674 TH/MM3 (150-450); RED BLOOD COUNT 4.37 MIL/MM3 (4.50-5.90); RED CELL DISTRIBUTION WIDTH 18.1 % (11.6-17.2); WHITE BLOOD COUNT 18.2 TH/MM3 (4.0-11.0)
[2017-03-24 13:56] LABS: ALBUMIN 2.1 GM/DL (3.4-5.0); AST (GOT) 50 U/L (15-37); BLOOD UREA NITROGEN 23 MG/DL (7-18); CALCIUM 9.5 MG/DL (8.5-10.1); CHLORIDE 99 MEQ/L (98-107); CREATININE 1.46 MG/DL (0.60-1.30); GLOMERULAR FILTRATION RATE 48 ML/MIN (>89); GLUCOSE,RANDOM 153 MG/DL (74-106); LIPASE 128 U/L (73-393); MAGNESIUM 1.7 MG/DL (1.5-2.5); SODIUM (NA) 131 MEQ/L (136-145)
[2017-03-24 13:57] LABS: ALT (GPT) 64 U/L (12-78)
[2017-03-24 13:59] LABS: ALKALINE PHOSPHATASE 147 U/L (45-117); TOTAL BILIRUBIN ADULT 0.8 MG/DL (0.2-1.0); TOTAL PROTEIN 8.7 GM/DL (6.4-8.2)
--- NOTE | 2017-03-24 16:27 | PD ---
HPI Chief Complaint: General Weakness Time Seen by Provider: 16:05 Travel History International Travel<30 days: No Contact w/Intl Traveler<30days: No Traveled to known affect area: No History of Present Illness HPI This patient complains of generalized weakness. Duration 5 days. He has a dry cough. Bit of nasal congestion. No vomiting or diarrhea or fever. Not having chest pain. He has a chronic urostomy but hasn't noticed any problem with it. No alleviating factors. No exacerbating factors. Symptoms severity is moderate. PFSH Past Medical History Hx Anticoagulant Therapy: Yes (ELIQUIS) Cancer: Yes (BLADDER) Cardiovascular Problems: No High Cholesterol: Yes Chemotherapy: Yes (LAST TX 3 WEEKS AGO) Diabetes: Yes Endocrine: Yes Genitourinary: No Hepatitis: No Hiatal Hernia: Yes Hypertension: Yes Immune Disorder: No Musculoskeletal: Yes (ARTHRITIS, RT HIP PAIN) Neurologic: No Psychiatric: No Respiratory: No Thyroid Disease: No Past Surgical History AICD: No Cardiac Surgery: Yes (FILTER ) Joint Replacement: No Pacemaker: No Other Surgery: Yes (RIGHT CHEST PORT REMOVED OCTOBER 14/2017) Social History Alcohol Use: No Tobacco Use: No (1977 QUIT) Substance Use: No Allergies-Medications (Allergen,Severity, Reaction): Coded Allergies: No Known Allergies (Unverified Allergy, Unknown, 02/19/17) Reported Meds & Prescriptions Reported Meds & Active Scripts Active Metoprolol Succinate ER 24 HR (Metoprolol Succinate) 50 Mg Tab 50 Mg PO DAILY Atorvastatin (Atorvastatin Calcium) 40 Mg Tab 40 Mg PO HS Reported B-12 (Cyanocobalamin) 2,000 Mcg Tab 2,000 Mcg PO DAILY Eliquis (Apixaban) 5 Mg Tab 5 Mg PO BID Centrum Silver Adult 50+ (Multiple Vitamins W/ Minerals) 0.4 Mg-300 Mcg-250 Mcg Tab Glimepiride 4 Mg Tab 4 Mg PO BIDAC Glucophage (Metformin HCl) 1,000 Mg Tab 1,000 Mg PO BIDPC With a meal Review of Systems General / Constitutional: No: Fever Eyes: No: Visual changes HENT: No: Headaches Cardiovascular: No: Chest Pain or Discomfort Respiratory: No: Shortness of Breath Gastrointestinal: No: Abdominal Pain Genitourinary: No: Dysuria Musculoskeletal: Positive: Weakness, No: Pain Skin: No Rash Neurologic: Positive: Weakness Psychiatric: No: Depression Endocrine: No: Polydipsia Hematologic/Lymphatic: No: Easy Bruising Physical Exam Narrative GENERAL: Well-nourished, well-developed patient in no apparent distress. SKIN: Focused skin assessment reveals no rash and nodules. Skin is Warm and dry. HEAD: Atraumatic. Normocephalic. EYES: Pupils equal and round. No scleral icterus. No injection or drainage. ENT: No nasal bleeding or discharge. Mucous membranes pink and moist. NECK: Trachea midline. No JVD. CARDIOVASCULAR: Regular rate and rhythm. No murmur appreciated. RESPIRATORY: No accessory muscle use. Clear to auscultation. Breath sounds equal bilaterally. GASTROINTESTINAL: Abdomen soft, non-tender, nondistended. Hepatic and splenic margins not palpable. MUSCULOSKELETAL: No obvious deformities. No clubbing. No cyanosis. No edema. Has a urostomy in the right lower quadrant. NEUROLOGICAL: Awake and alert. No obvious cranial nerve deficits. Motor grossly within normal limits. Normal speech. PSYCHIATRIC: Appropriate mood and affect; insight and judgment normal. Data Data Last Documented VS Vital Signs Date Time Temp Pulse Resp B/P (MAP) Pulse Ox O2 Delivery O2 Flow Rate FiO2 03/24/17 12:56 98.9 135 18 114/80 (91) 95 Orders Orders Complete Blood Count With Diff (03/24/17 13:05) Comprehensive Metabolic Panel (03/24/17 13:05) Lipase (03/24/17 13:05) Magnesium (Mg) (03/24/17 13:05) Urine Culture (03/24/17 16:20) Iv Access Insert/Monitor (03/24/17 16:20) Sodium Chlor 0.9% 1000 Ml Inj (Ns 1000 M (03/24/17 16:30) Chest, Single Ap (03/24/17 ) Influenzae A/B Antigen (03/24/17 16:20) Electrocardiogram (03/24/17 ) Labs Laboratory Tests Test 03/24/17 13:19 White Blood Count 18.2 TH/MM3 Red Blood Count 4.37 MIL/MM3 Hemoglobin 10.9 GM/DL Hematocrit 33.6 % Mean Corpuscular Volume 76.8 FL Mean Corpuscular Hemoglobin 24.9 PG Mean Corpuscular Hemoglobin Concent 32.4 % Red Cell Distribution Width 18.1 % Platelet Count 674 TH/MM3 Mean Platelet Volume 8.0 FL Neutrophils (%) (Auto) 78.9 % Lymphocytes (%) (Auto) 14.3 % Monocytes (%) (Auto) 6.0 % Eosinophils (%) (Auto) 0.1 % Basophils (%) (Auto) 0.7 % Neutrophils # (Auto) 14.3 TH/MM3 Lymphocytes # (Auto) 2.6 TH/MM3 Monocytes # (Auto) 1.1 TH/MM3 Eosinophils # (Auto) 0.0 TH/MM3 Basophils # (Auto) 0.1 TH/MM3 CBC Comment DIFF FINAL Differential Comment Blood Urea Nitrogen 23 MG/DL Creatinine 1.46 MG/DL Random Glucose 153 MG/DL Total Protein 8.7 GM/DL Albumin 2.1 GM/DL Calcium Level 9.5 MG/DL Magnesium Level 1.7 MG/DL Alkaline Phosphatase 147 U/L Aspartate Amino Transf (AST/SGOT) 50 U/L Alanine Aminotransferase (ALT/SGPT) 64 U/L Total Bilirubin 0.8 MG/DL Sodium Level 131 MEQ/L Potassium Level 4.1 MEQ/L Chloride Level 99 MEQ/L Carbon Dioxide Level 18.0 MEQ/L Anion Gap 14 MEQ/L Estimat Glomerular Filtration Rate 48 ML/MIN Lipase 128 U/L [facility] Medical Decision Making Medical Screen Exam Complete: Yes Emergency Medical Condition: Yes Medical Record Reviewed: Yes Differential Diagnosis Electrolyte abnormality, dehydration, flu syndrome, pneumonia Narrative Course I have reviewed the patient's electronic medical record. IV placed CBC shows some nonspecific leukocytosis Metabolic profile reasonably normal LFTs are normal Urine was sent for culture. Urinalysis will undoubtedly show pyuria which the patient reports is chronic and this will not be helpful I reviewed his chest x-ray is negative for consolidation Influenza swab is negative I reviewed his EKG which shows a sinus rhythm. Machine was reading A. fib but shows long runs of sinus rhythm with occasional ectopic beat Patient does not look septic or toxic As precaution 2 sets of blood cultures were obtained He may have viral illness Symptoms are vague and nonspecific He's had no fever has no meningeal signs Has primary care follow-up in 6 days. If he worsens in the meantime he will return We discussed antibiotics but I don't see specific indication for that His main complaint overall his lack of appetite. It turns out this is more of a chronic problem. Back in [place] he was offered Marinol but declined He has soft benign nontender abdomen Diagnosis Primary Impression: Poor appetite Additional Impression: Generalized weakness Additional Instructions: The patient was advised to follow up with their physician and return if they worsen. Med/Other Pt SpecificInfo: Other Disposition: 01 DISCHARGE HOME Condition: Stable Ross Gan MD Mar 24, 2017 16:27
[2017-03-24] MEDS ORDERED: SODIUM CHLOR 0.9% 1000 ML INJ 1,000 ML IV ONE (16:30)
--- NOTE | 2017-03-24 17:07 | RADRPT ---
EXAM DATE/TIME: 03/24/2017 16:39 [facility] COMPARISON: CHEST SINGLE AP, January 17, 2017, 3:57. INDICATIONS : Cough x 3 days. MEDICAL HISTORY : Carcinoma, bladder. Diabetes mellitus type II. DVT SURGICAL HISTORY : Saddle pulmonary embolism Port placement Right hip replacement ENCOUNTER: Initial ACUITY: 1 day PAIN SCORE: 0/10 LOCATION: Bilateral chest FINDINGS: A single view of the chest demonstrates the lungs to be symmetrically aerated without evidence of mas s, infiltrate or effusion. The cardiomediastinal contours are unremarkable. Osseous structures are intact. CONCLUSION: No acute disease. Jose Armando Swartz MD on March 24, 2017 at 17:04 Board Certified Radiologist. This report was verified electronically.
--- NOTE | 2017-03-25 10:10 | EKG ---
Date Performed: 03/24/2017 Time Performed: 17:35:07 PTAGE: 71 years EKG: ATRIAL FIBRILLATION INFERIOR MYOCARDIAL INFARCTION ABNORMAL ECG PREVIOUS TRACING : 07/17/2015 10.19 DOCTOR: Toño Anton Interpretating Date/Time 03/25/2017 10:09:31
[2017-03-30] MEDS ORDERED: CIPR-9 PO (11:41)
== END 2017-03-24 19:12 | disposition home or self-care (01) ==
LOC: NEPE 12:55
DX: R63.0 Anorexia (principal); R53.1 Weakness; E11.9 Type 2 diabetes mellitus without complications; E78.00 Pure hypercholesterolemia, unspecified; I10 Essential (primary) hypertension; I48.91 Unspecified atrial fibrillation; Z79.01 Long term (current) use of anticoagulants; Z79.84 Long term (current) use of oral hypoglycemic drugs; Z87.891 Personal history of nicotine dependence
CPT/HCPCS: 71045; 80053; 83690; 83735; 85025; 87077; 87086; 87186; 87804; 93005; 96360; 99285; J7030

== ENCOUNTER → 2017-03-27 | Outpatient (CLI) | payer MEDICARE, BC ==
[2017-03-27 13:38] LABS: AUTOMATED NEUTROPHIL # 10.9 TH/MM3 (1.8-7.7); BACTERIA, URINE MOD /hpf; BASOPHIL # 0.1 TH/MM3 (0-0.2); BASOPHIL % 0.4 % (0.0-2.0); BILIRUBIN, URINE NEG (NEG); BLOOD, URINE MOD (NEG); COMMENT (UR) CULTURE INDICATED; CULTURE IF INDICATED CULTURE INDICATED; EOSINOPHIL % 0.2 % (0.0-4.0); GLUCOSE,URINE NEG (NEG); HEMATOCRIT 32.1 % (39.0-51.0); HEMO FLAGS DIFF FINAL; HYALINE CAST, URINE 3 /lpf (RARE); KETONE, URINE NEG (NEG); LYMPH % 15.4 % (9.0-44.0); LYMPHOCYTE # 2.1 TH/MM3 (1.0-4.8); MEAN CELL VOLUME 77.4 FL (80.0-100.0); MEAN CORPUSCULAR HEMOGLOBIN 24.2 PG (27.0-34.0); MEAN CORPUSCULAR HGB CONC 31.2 % (32.0-36.0); MEAN PLATELET VOLUME 8.5 FL (7.0-11.0); MONO % 4.1 % (0.0-8.0); MONOCYTE # 0.6 TH/MM3 (0-0.9); MUCUS URINE FEW /lpf (OCC); NEUT % 79.9 % (16.0-70.0); NITRITE,URINE NEG (NEG); PH, URINE 6.5 (5.0-8.5); PLATELET COUNT 686 TH/MM3 (150-450); RED BLOOD COUNT 4.15 MIL/MM3 (4.50-5.90); RED CELL DISTRIBUTION WIDTH 18.7 % (11.6-17.2); URINE COLOR YELLOW (YELLW/STRAW); URINE LEUKOCYTE ESTERASE LARGE (NEG); WHITE BLOOD CELL CLUMPS MANY; WHITE BLOOD COUNT 13.7 TH/MM3 (4.0-11.0)
[2017-03-27 13:45] LABS: BLOOD UREA NITROGEN 21 MG/DL (7-18); CALCIUM 9.3 MG/DL (8.5-10.1); CHLORIDE 101 MEQ/L (98-107); CREATININE 1.29 MG/DL (0.60-1.30); GLOMERULAR FILTRATION RATE 55 ML/MIN (>89); GLUCOSE,FASTING 162 MG/DL (74-99); POTASSIUM 3.8 MEQ/L (3.5-5.1); SODIUM (NA) 134 MEQ/L (136-145)
[2017-03-27 13:50] LABS: ALKALINE PHOSPHATASE 134 U/L (45-117); ALT (GPT) 69 U/L (12-78); ANION GAP 14 MEQ/L (5-15); AST (GOT) 45 U/L (15-37); BICARBONATE 19.3 MEQ/L (21.0-32.0); TOTAL BILIRUBIN ADULT 0.4 MG/DL (0.2-1.0); TOTAL PROTEIN 8.1 GM/DL (6.4-8.2)
== END ==
LOC: PLAB 10:37
DX: D72.829 Elevated white blood cell count, unspecified (principal); N39.0 Urinary tract infection, site not specified; B96.1 Klebsiella pneumoniae [K. pneumoniae] as the cause of diseases classified elsewhere; E86.0 Dehydration
CPT/HCPCS: 36415; 80053; 81001; 85025; 87077; 87086; 87186

== ENCOUNTER → 2017-05-18 | Outpatient (CLI) | payer MEDICARE, BC ==
[~2017-05-18] MED LIST changes: +CIPR-9 PO
[2017-05-18 14:11] LABS: CHLORIDE 104 MEQ/L (98-107); SODIUM (NA) 137 MEQ/L (136-145)
[2017-05-18 14:15] LABS: ALBUMIN 2.4 GM/DL (3.4-5.0); BICARBONATE 21.1 MEQ/L (21.0-32.0); BLOOD UREA NITROGEN 29 MG/DL (7-18); CALCIUM 9.4 MG/DL (8.5-10.1); GLUCOSE,RANDOM 153 MG/DL (74-106)
[2017-05-18 14:18] LABS: ALT (GPT) 16 U/L (12-78); AST (GOT) 14 U/L (15-37); GLOMERULAR FILTRATION RATE 54 ML/MIN (>89)
[2017-05-18 14:20] LABS: TOTAL BILIRUBIN ADULT 0.2 MG/DL (0.2-1.0); TOTAL PROTEIN 8.6 GM/DL (6.4-8.2)
[2017-05-18 14:21] LABS: ALKALINE PHOSPHATASE 105 U/L (45-117)
[2017-05-18 15:54] LABS: AUTOMATED NEUTROPHIL # 7.8 TH/MM3 (1.8-7.7); BASOPHIL # 0.1 TH/MM3 (0-0.2); BASOPHIL % 0.8 % (0.0-2.0); EOSINOPHIL # 0.1 TH/MM3 (0-0.4); EOSINOPHIL % 0.6 % (0.0-4.0); HEMATOCRIT 33.5 % (39.0-51.0); HEMOGLOBIN 10.9 GM/DL (13.0-17.0); LYMPH % 25.9 % (9.0-44.0); MEAN CELL VOLUME 80.6 FL (80.0-100.0); MEAN CORPUSCULAR HEMOGLOBIN 26.2 PG (27.0-34.0); MEAN CORPUSCULAR HGB CONC 32.5 % (32.0-36.0); MEAN PLATELET VOLUME 7.9 FL (7.0-11.0); MONO % 5.5 % (0.0-8.0); MONOCYTE # 0.6 TH/MM3 (0-0.9); NEUT % 67.2 % (16.0-70.0); PLATELET COUNT 607 TH/MM3 (150-450); RED BLOOD COUNT 4.16 MIL/MM3 (4.50-5.90); RED CELL DISTRIBUTION WIDTH 22.1 % (11.6-17.2); WHITE BLOOD COUNT 11.7 TH/MM3 (4.0-11.0)
== END ==
LOC: PLAB 13:09
PROVIDERS: ATTEND Physician Assistant Medical
DX: I10 Essential (primary) hypertension (principal); D50.9 Iron deficiency anemia, unspecified
CPT/HCPCS: 36415; 80053; 85025

== ENCOUNTER → 2017-07-28 | Outpatient (CLI) | payer MEDICARE, BC ==
[2017-07-28 17:53] LABS: CHOLESTEROL 108 MG/DL (120-200); TRIGLYCERIDES 166 MG/DL (42-150)
[2017-07-28 17:54] LABS: HDL CHOLESTEROL 34.8 MG/DL (40.0-60.0); LDL CHOLESTEROL 40 MG/DL (0-99)
[2017-07-28 19:08] LABS: HEMOGLOBIN A1C 7.1 % (4.3-6.0)
== END ==
LOC: PLAB 13:10
PROVIDERS: ATTEND Family Medicine
DX: E78.2 Mixed hyperlipidemia (principal); E11.65 Type 2 diabetes mellitus with hyperglycemia
CPT/HCPCS: 36415; 80061; 83036